=== PATIENT | male | born 1970 | race Caucasian/White ===

== ENCOUNTER 2016-10-18 07:35 | Inpatient (IN) | payer OTHER ==
[~2016-10-18] VITALS: Ht 185.4 cm; Wt 109.0 kg
[2016-10-18] VITALS (13 sets, daily range): BP systolic 137–167; BP diastolic 55–89; PULSE 100–113; RESP 18–22; TEMP 98.3–98.4; O2SAT 97–100
[~2016-10-18 07:35] MED LIST: INSU1MIS15; LANCETS1 MI1; LISI10TA3 PO; NOVOLOGMXP SQ; POTA-163 PO
[2016-10-18] MEDS: SODIUM CHLOR 0.9% 1000 ML INJ 1,000 ML IV SCH ×2 (07:49→09:04)
--- NOTE | 2016-10-18 07:53 | PD ---
HPI Chief Complaint: Diabetic Time Seen by Provider: 07:45 Travel History International Travel<30 days: No Contact w/Intl Traveler<30days: No Traveled to known affect area: No History of Present Illness HPI 46-year-old male presents with shortness of breath, vomiting and general ill feeling since yesterday. He states that he last took his insulin yesterday morning because since been throwing up and not feeling good he didn't think he would need more. He states he currently doesn't have a set primary care physician and he is been working on getting medication through an assistance clinic that helps. He denies any pain, fever or other concurrent complaints. He states he feels worse when he moves around. His Accu-Chek with the ambulance team was in the 500s ,his entidal CO2 was 8. Quality is significantly elevated. Duration is one day. He states he had DKA when he was here around April last. PFSH Past Medical History Cancer: No Cardiovascular Problems: Yes High Cholesterol: Yes Diabetes: Yes Diminished Hearing: No Genitourinary: No Hypertension: Yes Musculoskeletal: No Neurologic: No Reproductive: No Respiratory: No Social History Alcohol Use: No Tobacco Use: No Substance Use: No Allergies-Medications (Allergen,Severity, Reaction): Coded Allergies: No Known Allergies (Verified , 04/13/16) Reported Meds & Prescriptions Reported Meds & Active Scripts Active Lancets 1 Mis Mis 1 Ea .ROUTE DIRECTED Insulin Syringe/U-100/31G X 09/29" 1 ml 1 Mis Mis 1 Ea .ROUTE DIRECTED Lisinopril 10 Mg Tab 10 Mg PO DAILY Potassium Chloride ER (Potassium Chloride) 20 Meq Tab 20 Meq PO DAILY Novolog Mix 70-30 Inj (Insulin Aspart Prota 70%/Aspart 30%) 1,000 Unit/10 Ml Vial 25 Units SQ BIDAC Review of Systems Except as stated in HPI: all other systems reviewed are Neg Physical Exam Narrative GENERAL: Well-nourished, well-developed patient. SKIN: Warm and dry. HEAD: Normocephalic and atraumatic. EYES: No injection or drainage. ENT: No nasal drainage noted. NECK: Supple, trachea midline. CARDIOVASCULAR: Tachycardic rate and regular rhythm RESPIRATORY: Breath sounds equal bilaterally. No accessory muscle use. GASTROINTESTINAL: Abdomen soft, non-tender, nondistended. EXTREMITIES: No edema. NEUROLOGICAL: Awake and alert. Motor and sensory grossly within normal limits. Normal speech. Data Data Last Documented VS Vital Signs Date Time Temp Pulse Resp B/P Pulse Ox O2 Delivery O2 Flow Rate FiO2 10/18/16 08:48 104 22 149/89 100 Nasal Cannula 2 10/18/16 07:46 98.4 Orders Electrocardiogram (10/18/16 07:45) ^ Insert Iv (10/18/16 07:45) Diet Npo (10/18/16 Breakfast) Lipase (10/18/16 07:45) Troponin I (10/18/16 07:45) Complete Blood Count With Diff (10/18/16 07:45) Comprehensive Metabolic Panel (10/18/16 07:45) Magnesium (Mg) (10/18/16 07:45) Phosphorus (Po4) (10/18/16 07:45) Beta Hydroxybutyrate (Acetone) (10/18/16 07:45) Sodium Chlor 0.9% 1000 Ml Inj (Ns 1000 M (10/18/16 07:45) Urinalysis - C+S If Indicated (10/18/16 07:45) Chest, Single Ap (10/18/16 ) Arterial Blood Gas (Abg) (10/18/16 ) Creatine Kinase (Cpk) (10/18/16 07:45) Lactic Acid (10/18/16 07:45) Blood Culture (10/18/16 07:45) Blood Glucose (10/18/16 07:47) Blood Glucose (10/18/16 08:47) Ecg Monitoring (10/18/16 07:47) Oximetry (10/18/16 07:47) Sodium Bicarbonate 8.4% Inj (Sodium Bica (10/18/16 08:30) Sodium Chlor 0.9% 1000 Ml Inj (Ns 1000 M (10/18/16 08:45) Vancomycin Inj (Vancomycin Inj) (10/18/16 08:36) Piperacil-Tazo 4.5 Gm Premix (Zosyn 4.5 (10/18/16 08:36) Sodium Chlor 0.9% 1000 Ml Inj (Ns 1000 M (10/18/16 09:13) Dext 5%-Nacl 0.9% 1000 Ml Inj (D5w-Ns 10 (10/18/16 09:13) Insulin Human Regular Inj (Novolin R Inj (10/18/16 09:15) Insulin Regular (Iv Infusion) (Novolin R (10/18/16 09:15) Potassium Chlor 20 Meq Premix (Kcl 20 Me (10/18/16 09:15) Potassium Chlor 20 Meq Premix (Kcl 20 Me (10/18/16 09:15) Potassium Chlor 20 Meq Premix (Kcl 20 Me (10/18/16 09:15) Potassium Chlor 20 Meq Premix (Kcl 20 Me (10/18/16 09:15) Sodium Bicarbonate 8.4% Inj (Sodium Bica (10/18/16 09:15) Sodium Phosphate Inj (Sodium Phosphate I (10/18/16 09:15) Admit Order (Ed Use Only) (10/18/16 09:41) Labs Laboratory Tests Test 10/18/16 10/18/16 07:45 08:11 White Blood Count 17.3 TH/MM3 Red Blood Count 5.32 MIL/MM3 Hemoglobin 17.5 GM/DL Hematocrit 52.4 % Mean Corpuscular Volume 98.6 FL Mean Corpuscular Hemoglobin 32.9 PG Mean Corpuscular Hemoglobin 33.4 % Concent Red Cell Distribution Width 14.0 % Platelet Count 242 TH/MM3 Mean Platelet Volume 10.4 FL Neutrophils (%) (Auto) 79.6 % Lymphocytes (%) (Auto) 9.3 % Monocytes (%) (Auto) 10.7 % Eosinophils (%) (Auto) 0.0 % Basophils (%) (Auto) 0.4 % Neutrophils # (Auto) 13.8 TH/MM3 Lymphocytes # (Auto) 1.6 TH/MM3 Monocytes # (Auto) 1.9 TH/MM3 Eosinophils # (Auto) 0.0 TH/MM3 Basophils # (Auto) 0.1 TH/MM3 CBC Comment AUTO DIFF Differential Total Cells 100 Counted Neutrophils % (Manual) 71 % Band Neutrophils % 8 % Lymphocytes % 7 % Monocytes % 11 % Neutrophils # (Manual) 14.2 TH/MM3 Metamyelocytes 2 % Myelocytes 1 % Differential Comment FINAL DIFF MANUAL Platelet Estimate NORMAL Platelet Morphology Comment ENLARGED Red Cell Morphology Comment Sodium Level 135 MEQ/L Potassium Level 4.7 MEQ/L Chloride Level 100 MEQ/L Carbon Dioxide Level 6.5 MEQ/L Anion Gap 29 MEQ/L Blood Urea Nitrogen 22 MG/DL Creatinine 1.94 MG/DL Estimat Glomerular Filtration 38 ML/MIN Rate Random Glucose 535 MG/DL Lactic Acid Level 3.3 mmol/L Calcium Level 8.7 MG/DL Phosphorus Level 5.3 MG/DL Magnesium Level 2.4 MG/DL Total Bilirubin 0.7 MG/DL Aspartate Amino Transf 10 U/L (AST/SGOT) Alanine Aminotransferase 25 U/L (ALT/SGPT) Alkaline Phosphatase 133 U/L Total Creatine Kinase 42 U/L Troponin I LESS THAN 0.02 NG/ML Total Protein 7.9 GM/DL Albumin 4.0 GM/DL Lipase 738 U/L B-Hydroxybutyrate 13.57 MMOL/L Blood Gas Puncture Site RT RADIAL Blood Gas Patient Temperature 98.6 Blood Gas HCO3 2 mmol/L Blood Gas Base Excess -28.8 mmol/L Blood Gas Oxygen Saturation 95 % Arterial Blood pH 6.93 Arterial Blood Partial 8 mmHg Pressure CO2 Arterial Blood Partial 147 mmHG Pressure O2 Arterial Blood Oxygen Content 21.8 Vol % Arterial Blood 2.0 % Carboxyhemoglobin Arterial Blood Methemoglobin 1.3 % Blood Gas Hemoglobin 16.2 G/DL Oxygen Delivery Device ROOM AIR Blood Gas Inspired Oxygen 21 % MDM Medical Decision Making Medical Screen Exam Complete: Yes Emergency Medical Condition: Yes Medical Record Reviewed: Yes (past history confirmed) Interpretation(s) CBC & BMP Diagram 10/18/16 07:45 Last 24 hours Impressions Chest X-Ray 10/18/16 0000 Signed Impressions: Service Date/Time: Tuesday, October 18, 2016 08:05 - CONCLUSION: No acute cardiopulmonary disease identified. River Maldonado MD Metabolic acidosis with bicarbonate of 2 and PCO2 of 8, pH is 6.9 and PO2 of 147 -given bicarbonate Differential Diagnosis DKA, UTI, pneumonia, URI, cardiac, noncompliance, gastroenteritis Narrative Course Will check blood work, urinalysis, chest x-ray and dose with IV fluid hydration and closely monitor on review of abg, given bicarb, given broad spectrum antibiotics for coverage 481 on recheck after ivf, will start insulin bolus and drip and admit to the icu Critical Care Narrative Aggregate critical care time was 45 minutes. Time to perform other separately billable procedures was not included in the critical care time. My time did not include minutes spent treating any other patients simultaneously or on activities that did not directly contribute to the patient's treatment. The services I provided to this patient were to treat and/or prevent clinically significant deterioration that could result in: electrolyte abnormality, shock.... I provided critical care services requiring my management, as noted below: Chart data review, documentation time, medication orders and management, vital sign assessments/reviewing monitor data, ordering and reviewing lab tests, ordering and interpreting/reviewing x-rays and diagnostic studies, care of the patient and discussion of the patient with the admitting physicians. Sepsis Criteria SIRS Criteria (2 or more): Heart rate over 90, WBC > 16915, < 4000 or > 10% bands Sepsis Criteria (SIRS+source): Infect source susp/known Severe Sepsis (+one): Lactate >2 Criteria Outcome: Meets severe sepsis criteria Physician Communication Physician Communication dr eisenberg agrees to admit, will take over care Diagnosis Primary Impression: DKA (diabetic ketoacidoses) Qualified Code: E10.10 - Diabetic ketoacidosis without coma associated with type 1 diabetes mellitus Additional Impressions: Acidosis Sepsis Qualified Code: A41.9 - Sepsis, due to unspecified organism Vomiting Qualified Code: R11.2 - Non-intractable vomiting with nausea, unspecified vomiting type Admitting Information Admitting Physician Requests: Admit Celi Guzman MD Oct 18, 2016 07:53
[2016-10-18 08:21] LABS: BLOOD GAS BASE EXCESS -28.8 mmol/L (-2-2); BLOOD GAS HCO3 2 mmol/L (22-26); BLOOD GAS METHEMOGLOBIN 1.3 % (0-2); BLOOD GAS O2 HGB SATURATION 95 % (90-100); BLOOD GAS OXYGEN CONTENT 21.8 Vol % (12.0-20.0); BLOOD GAS PCO2 8 mmHg (38-42); BLOOD GAS PO2 147 mmHG (61-120); BLOOD GAS TOTAL HGB 16.2 G/DL (12.0-16.0); CRITICAL VALUE YES; DRAW SITE RT RADIAL; FIO2 21 %; NUMBER OF ARTERIAL PUNCTURES 1; OXYGEN DEVICE ROOM AIR; STAT YES; TEMP CORR TO 98.6
--- NOTE | 2016-10-18 08:21 | RADRPT ---
EXAM DATE/TIME: 10/18/2016 08:05 [facility] COMPARISON: CHEST SINGLE AP, April 13, 2016, 23:13. INDICATIONS : Short of Breath MEDICAL HISTORY : Diabetes mellitus type II. Hypertension SURGICAL HISTORY : None. ENCOUNTER: Initial ACUITY: 1 day PAIN SCORE: 0/10 LOCATION: Bilateral chest FINDINGS: Single AP view of the chest. Respiratory motion on the right. The lungs are clear. Cardiomediastinal silhouette within normal limits. No evidence of pleural effusion or pneumothorax. CONCLUSION: No acute cardiopulmonary disease identified. River Maldonado MD on October 18, 2016 at 8:14 Board Certified Radiologist. This report was verified electronically.
[2016-10-18] MEDS ORDERED: SODIUM BICARBONATE 8.4% SOLN 50 MEQ/50 ML VIAL IV PRN ×4 (08:30→10:00)
[2016-10-18 08:33] LABS: AUTOMATED NEUTROPHIL # 13.8 TH/MM3 (1.8-7.7); BASOPHIL # 0.1 TH/MM3 (0-0.2); BASOPHIL % 0.4 % (0.0-2.0); HEMATOCRIT 52.4 % (39.0-51.0); LYMPH % 9.3 % (9.0-44.0); LYMPHOCYTE # 1.6 TH/MM3 (1.0-4.8); MEAN CELL VOLUME 98.6 FL (80.0-100.0); MEAN CORPUSCULAR HEMOGLOBIN 32.9 PG (27.0-34.0); MEAN CORPUSCULAR HGB CONC 33.4 % (32.0-36.0); MONO % 10.7 % (0.0-8.0); NEUT % 79.6 % (16.0-70.0); PLATELET COUNT 242 TH/MM3 (150-450); RED BLOOD COUNT 5.32 MIL/MM3 (4.50-5.90); WHITE BLOOD COUNT 17.3 TH/MM3 (4.0-11.0)
[2016-10-18 08:34] LABS: HEMO FLAGS AUTO DIFF
[2016-10-18] MEDS ORDERED: VANCOMYCIN INJ 1,000 MG in SODIUM CHLOR 0.9% 250 ML INJ 250 ML IV STA (08:36)
[2016-10-18] MEDS ORDERED: PIPERACIL-TAZO 4.5 GM PREMIX 100 ML IV STA (08:36)
[2016-10-18] MEDS ORDERED: SODIUM CHLOR 0.9% 1000 ML INJ 1,000 ML IV ONE (08:45)
[2016-10-18 08:51] LABS: ANION GAP 29 MEQ/L (5-15)
[2016-10-18 09:07] LABS: BANDS 8 % (0-6); METAMYELOCYTES 2 % (0-1); MYELOCYTES 1 % (0-0); NEUTROPHIL # MANUAL DIFF 14.2 TH/MM3 (1.8-7.7); POLYS (SEG NEUTROPHILS) 71 % (16-70); WBC DIFF SAMPLE 100
[2016-10-18 09:08] LABS: ALKALINE PHOSPHATASE 133 U/L (45-117); ALT (GPT) 25 U/L (12-78); AST (GOT) 10 U/L (15-37); BETA-HYDROXYBUTYRATE 13.57 MMOL/L (0.00-0.39); BICARBONATE 6.5 MEQ/L (21.0-32.0); BLOOD UREA NITROGEN 22 MG/DL (7-18); CHLORIDE 100 MEQ/L (98-107); GLOMERULAR FILTRATION RATE 38 ML/MIN (>89); MAGNESIUM 2.4 MG/DL (1.5-2.5); POTASSIUM 4.7 MEQ/L (3.5-5.1); SODIUM (NA) 135 MEQ/L (136-145); TOTAL BILIRUBIN ADULT 0.7 MG/DL (0.2-1.0)
[2016-10-18 09:09] LABS: CREATINE KINASE 42 U/L (39-308); PLATELET ESTIMATE SMEAR NORMAL (NORMAL)
[2016-10-18 09:10] LABS: PLATELET MORPHOLOGY ENLARGED (NORMAL)
[2016-10-18 09:12] LABS: SCAN/DIFF FINAL DIFF MANUAL
[2016-10-18] MEDS ORDERED: DEXT 5%-NACL 0.9% 1000 ML INJ 1,000 ML IV SCH (09:13)
[2016-10-18] MEDS ORDERED: SODIUM CHLOR 0.9% 1000 ML INJ 1,000 ML IV SCH ×2 (09:13→11:00)
[2016-10-18] MEDS ORDERED: INSULIN HUMAN REGULAR 1,000 UNITS/10 ML VIAL IV PUSH ONE (09:15)
[2016-10-18] MEDS ORDERED: POTASSIUM CHLOR 20 MEQ PREMIX 100 ML IV PRN ×9 (09:15→10:00)
[2016-10-18] MEDS ORDERED: SODIUM PHOSPHATE INJ 15 MMOL in SODIUM CHLORIDE 0.9% INJ 100 ML IV PRN (09:15)
[2016-10-18] MEDS: INSULIN REGULAR (IV INFUSION) 100 UNITS in SODIUM CHLORIDE 0.9% INJ 99 ML IV SCH ×3 (09:34→22:06)
[2016-10-18] MEDS ORDERED: CHLORHEXIDINE GLUCONATE 2 % 1 PACK (2 CLOTHS) TOP PRN (10:00)
[2016-10-18] MEDS ORDERED: POTASSIUM CHLOR 40 MEQ PREMIX 100 ML IV PRN ×2 (10:00)
[2016-10-18] MEDS ORDERED: MISCELLANEOUS NURSING INFORMATION XX SCH (10:00)
[2016-10-18] MEDS ORDERED: ONDANSETRON HCL 4 MG/2 ML VIAL IV PUSH PRN (10:15)
[2016-10-18 10:16] LABS: BLOOD, URINE SMALL (NEG); GLUCOSE,URINE 1000 mg/dL (NEG); KETONE, URINE 150 mg/dL (NEG); NITRITE,URINE NEG (NEG); PH, URINE 5.5 (5.0-8.5); URINE COLOR LIGHT-YELLOW (YELLW/STRAW)
[2016-10-18 10:31] LABS: RBC, URINE 0-3 /hpf (0-3); WBC, URINE 0-2 /hpf (0-5)
[2016-10-18 10:32] LABS: COMMENT (UR) CULT NOT INDICATED; COMMENT2 (UR) CULT NOT INDICATED; CULTURE IF INDICATED CULT NOT INDICATED; HYALINE CAST, URINE 0-2 /lpf (RARE); SQUAMOUS EPITHELIAL CELL URINE 0-5 /hpf (0-5)
[2016-10-18] MEDS: DEXT 5%-NACL 0.9% 1000 ML INJ 1,000 ML IV SCH ×3 (11:00→20:05)
--- NOTE | 2016-10-18 13:09 | HHI.HP ---
HPI Service Critical Care Medicine Primary Care Physician No Primary Care Physician Admission Diagnosis dka Diagnosis: Chief Complaint: Nausea, vomiting, shortness of breath Travel History International Travel<30 Days: No Contact w/Intl Traveler <30 Da: No Traveled to Known Affected Are: No Sepsis Criteria SIRS Criteria (2 or more): Heart rate over 90, RR > 20 or PaCO2 < 32 Criteria Outcome: Meets SIRS criteria History of Present Illness HPI 46-year-old male who was brought to the ER by EMS with a history of nausea vomiting and worsening shortness of breath since yesterday morning. He had his insulin since he was not able to keep anything down since yesterday. He denied any chest pain, fevers or chills no dysuria. Denied any hematemesis or melena. His Accu-Chek with EMS was 500s and tidal CO2 was 8. He has previously been admitted for DKA in April 2016 at [place]. Patient was evaluated in the ER and was diagnosed to have diabetic ketoacidosis with a bicarbonate of 8. He was initiated on insulin drip and has been accepted for admission by critical care medicine. I evaluated the patient in the ER after being notified of the admission. At the time of evaluation was laying in the ER stretcher drowsy but easily arousable following commands in minimal respiratory distress with tachypnea. History PFSH Past Medical History Cancer: No Cardiovascular Problems: Yes High Cholesterol: Yes Diabetes: Yes Diminished Hearing: No Genitourinary: No Hypertension: Yes Musculoskeletal: No Neurologic: No Reproductive: No Respiratory: No Social History Alcohol Use: No Tobacco Use: No Substance Use: No Allergies-Medications Allergies-Medications (Allergen,Severity, Reaction): Coded Allergies: No Known Allergies (Verified , 04/13/16) Reported Meds & Prescriptions Reported Meds & Active Scripts Active Lancets 1 Mis Mis 1 Ea .ROUTE DIRECTED Insulin Syringe/U-100/31G X 09/29" 1 ml 1 Mis Mis 1 Ea .ROUTE DIRECTED Lisinopril 10 Mg Tab 10 Mg PO DAILY Potassium Chloride ER (Potassium Chloride) 20 Meq Tab 20 Meq PO DAILY Novolog Mix 70-30 Inj (Insulin Aspart Prota 70%/Aspart 30%) 1,000 Unit/10 Ml Vial 25 Units SQ BIDAC ROS Review of Systems Except as stated in HPI: all other systems reviewed are Neg Physical Exam Vital Signs Vital Signs Date Time Temp Pulse Resp B/P Pulse Ox O2 Delivery O2 Flow Rate FiO2 10/18/16 12:06 113 20 159/69 99 Nasal Cannula 10/18/16 11:13 112 20 153/55 100 Nasal Cannula 2 10/18/16 10:35 110 20 167/80 97 Nasal Cannula 2 10/18/16 09:52 108 20 150/88 100 Nasal Cannula 2 10/18/16 08:48 104 22 149/89 100 Nasal Cannula 2 10/18/16 08:12 108 20 165/84 100 Nasal Cannula 2 10/18/16 07:56 119 18 97 Nasal Cannula 2 10/18/16 07:54 100 Nasal Cannula 2 10/18/16 07:46 98.4 108 18 137/79 Physical Exam Narrative GENERAL: Well-nourished, well-developed patient. SKIN: Warm and dry. HEAD: Normocephalic and atraumatic. EYES: No injection or drainage. ENT: No nasal drainage noted. Tongue dry NECK: Supple, trachea midline. CARDIOVASCULAR: Tachycardic rate and regular rhythm RESPIRATORY: Breath sounds equal bilaterally. No accessory muscle use. He is tachypneic GASTROINTESTINAL: Abdomen soft, non-tender, nondistended. EXTREMITIES: No edema. NEUROLOGICAL: Awake and alert. Motor and sensory grossly within normal limits. Normal speech. Laboratory Laboratory Tests Test 10/18/16 10/18/16 10/18/16 07:45 08:11 09:54 White Blood Count 17.3 Red Blood Count 5.32 Hemoglobin 17.5 Hematocrit 52.4 Mean Corpuscular Volume 98.6 Mean Corpuscular Hemoglobin 32.9 Mean Corpuscular Hemoglobin 33.4 Concent Red Cell Distribution Width 14.0 Platelet Count 242 Mean Platelet Volume 10.4 Neutrophils (%) (Auto) 79.6 Lymphocytes (%) (Auto) 9.3 Monocytes (%) (Auto) 10.7 Eosinophils (%) (Auto) 0.0 Basophils (%) (Auto) 0.4 Neutrophils # (Auto) 13.8 Lymphocytes # (Auto) 1.6 Monocytes # (Auto) 1.9 Eosinophils # (Auto) 0.0 Basophils # (Auto) 0.1 CBC Comment AUTO DIFF Differential Total Cells 100 Counted Neutrophils % (Manual) 71 Band Neutrophils % 8 Lymphocytes % 7 Monocytes % 11 Neutrophils # (Manual) 14.2 Metamyelocytes 2 Myelocytes 1 Differential Comment FINAL DIFF MANUAL Platelet Estimate NORMAL Platelet Morphology Comment ENLARGED Red Cell Morphology Comment Sodium Level 135 Potassium Level 4.7 Chloride Level 100 Carbon Dioxide Level 6.5 Anion Gap 29 Blood Urea Nitrogen 22 Creatinine 1.94 Estimat Glomerular Filtration 38 Rate Random Glucose 535 Lactic Acid Level 3.3 Calcium Level 8.7 Phosphorus Level 5.3 Magnesium Level 2.4 Total Bilirubin 0.7 Aspartate Amino Transf 10 (AST/SGOT) Alanine Aminotransferase 25 (ALT/SGPT) Alkaline Phosphatase 133 Total Creatine Kinase 42 Troponin I LESS THAN 0.02 Total Protein 7.9 Albumin 4.0 Lipase 738 B-Hydroxybutyrate 13.57 Blood Gas Puncture Site RT RADIAL Blood Gas Patient Temperature 98.6 Blood Gas HCO3 2 Blood Gas Base Excess -28.8 Blood Gas Oxygen Saturation 95 Arterial Blood pH 6.93 Arterial Blood Partial 8 Pressure CO2 Arterial Blood Partial 147 Pressure O2 Arterial Blood Oxygen Content 21.8 Arterial Blood 2.0 Carboxyhemoglobin Arterial Blood Methemoglobin 1.3 Blood Gas Hemoglobin 16.2 Oxygen Delivery Device ROOM AIR Blood Gas Inspired Oxygen 21 Urine Color LIGHT-YELLOW Urine Turbidity CLEAR Urine pH 5.5 Urine Specific Warren 1.020 Urine Protein 30 Urine Glucose (UA) 1000 Urine Ketones 150 Urine Occult Blood SMALL Urine Nitrite NEG Urine Bilirubin NEG Urine Urobilinogen LESS THAN 2.0 Urine Leukocyte Esterase NEG Urine RBC 0-3 Urine WBC 0-2 Urine Squamous Epithelial 0-5 Cells Urine Hyaline Casts 0-2 Urine Granular Casts 3-5 Microscopic Urinalysis Comment CULT NOT INDICATED Date/Time Procedure Status Source Growth 10/18/16 07:45 Aerobic Blood Culture Received Blood Peripheral Pending 10/18/16 07:45 Anaerobic Blood Culture Received Blood Peripheral Pending Result Diagram: 10/18/16 0745 10/18/16 0745 Imaging Last Impressions Chest X-Ray 10/18/16 0000 Signed Impressions: Service Date/Time: Tuesday, October 18, 2016 08:05 - CONCLUSION: No acute cardiopulmonary disease identified. River Maldonado MD Assessment and Plan Assessment and Plan Diabetic ketoacidosis Uncontrolled diabetes mellitus Nausea vomiting SIRS versus sepsis Leukocytosis with bandemia Plan: Neuro: Follow neuro status. Cardiovascular: Aggressive fluid resuscitation. Watch for hypotension. Pulmonary: Supplemental O2 as needed. Bronchodilators when necessary. GI/liver: Nothing by mouth for now. Doubt pancreatitis as patient does not have any abdominal pain. Protonix 40 mg IV twice a day Renal/: Aggressive fluid resuscitation, strict intake output, monitor and replete elect lites, follow BUN/creatinine. ID: Received vancomycin and Zosyn IV in the ER. Will continue empiric Zosyn. Follow blood cultures. Endocrine: Insulin drip per DKA protocol. Heme: Follow CBC Prophylaxis: Lovenox for DVT prophylaxis, Protonix Condition critical Time spent on critical care excluding procedures 40 minutes Sumanth Keller MD Oct 18, 2016 13:09
[2016-10-18] MEDS: PANTOPRAZOLE SODIUM 40 MG VIAL IV PUSH SCH (13:58)
--- NOTE | 2016-10-18 14:46 | EKG ---
Date Performed: 10/18/2016 Time Performed: 07:54:51 PTAGE: 46 years EKG: Sinus tachycardia Otherwise within normal limits Since PREVIOUS TRACING 04/14/2016, heart rate faster, othewise no significant chage. PREVIOUS TRACIN04/14/2016 01.26 DOCTOR: Bob Valdez Interpretating Date/Time 10/18/2016 14:44:37
[2016-10-18] MEDS: NORMOSOL R INJ 1,000 ML IV SCH ×2 (15:44→19:06)
[2016-10-18] MEDS: PIPERACIL-TAZO 3.375 GM PREMIX 50 ML IV SCH ×2 (15:44→22:06)
[2016-10-18] MEDS ORDERED: MISCELLANEOUS NURSING INFORMATION ONE (17:15)
[2016-10-18 18:39] LABS: BICARBONATE 12.4 MEQ/L (21.0-32.0); MAGNESIUM 2.1 MG/DL (1.5-2.5); POTASSIUM 3.7 MEQ/L (3.5-5.1)
[2016-10-18] MEDS: POTASSIUM CHLOR 20 MEQ PREMIX 100 ML IV PRN ×2 (19:04→21:09)
[2016-10-18] MEDS: SODIUM PHOSPHATE INJ 15 MMOL in SODIUM CHLORIDE 0.9% INJ 100 ML IV PRN (20:06)
[2016-10-19] VITALS (13 sets, daily range): BP systolic 101–118; BP diastolic 53–72; PULSE 78–97; RESP 14–27; TEMP 97.6–98.7; O2SAT 97–100
[2016-10-19] MEDS: NORMOSOL R INJ 1,000 ML IV SCH ×4 (00:08→16:16)
[2016-10-19 00:27] LABS: POTASSIUM 3.3 MEQ/L (3.5-5.1)
[2016-10-19] MEDS: POTASSIUM CHLOR 20 MEQ PREMIX 100 ML IV PRN ×3 (00:35→05:14)
[2016-10-19] MEDS: DEXT 5%-NACL 0.9% 1000 ML INJ 1,000 ML IV SCH (00:36)
[2016-10-19] MEDS: PIPERACIL-TAZO 3.375 GM PREMIX 50 ML IV SCH ×4 (03:02→21:53)
[2016-10-19] MEDS: PANTOPRAZOLE SODIUM 40 MG VIAL IV PUSH SCH ×2 (03:02→15:06)
[2016-10-19] MEDS: SODIUM PHOSPHATE INJ 15 MMOL in SODIUM CHLORIDE 0.9% INJ 100 ML IV PRN (03:33)
[2016-10-19] MEDS ORDERED: CHLORHEXIDINE GLUCONATE 2 % 1 PACK (2 CLOTHS) TOP SCH (04:00)
[2016-10-19] MEDS ORDERED: DC Insulin drip 2 hrs post basal insulin dose ONE (04:15)
[2016-10-19] MEDS ORDERED: DEXTROSE 50% IN WATER 50 ML VIAL(D50) IV PRN (04:15)
[2016-10-19] MEDS ORDERED: GLUCAGON 1 MG/ML VIAL OTHER PRN ×2 (04:15)
[2016-10-19] MEDS ORDERED: DC previous DKA orders (HMC 1917) ONE (04:15)
[2016-10-19] MEDS ORDERED: INSULIN REGULAR (IV INFUSION) 100 UNITS in SODIUM CHLORIDE 0.9% INJ 99 ML IV SCH (04:30)
--- NOTE | 2016-10-19 04:33 | RADRPT ---
EXAM DATE/TIME: 10/19/2016 03:21 [facility] COMPARISON: CHEST SINGLE AP, October 18, 2016, 8:05. INDICATIONS : Shortness of breath, possible pulmonary disease. MEDICAL HISTORY : Diabetes mellitus type II. Hypertension SURGICAL HISTORY : None. ENCOUNTER: Subsequent ACUITY: 2 days PAIN SCORE: 0/10 LOCATION: Bilateral chest FINDINGS: A single view of the chest demonstrates the lungs to be symmetrically aerated without evidence of mas s, infiltrate or effusion. The cardiomediastinal contours are unremarkable. Osseous structures are intact. CONCLUSION: Normal examination. Dane Cardona MD on October 19, 2016 at 4:31 Board Certified Radiologist. This report was verified electronically.
[2016-10-19] MEDS: INSULIN ASPART SUPPLEMENTAL SCALE SQ SCH ×4 (06:18→21:53)
--- NOTE | 2016-10-19 08:18 | HHI.CCPN ---
Subjective Remarks/Hospital Course 10/18: 46-year-old male who was brought to the ER by EMS with a history of nausea vomiting and worsening shortness of breath since yesterday morning. He had his insulin since he was not able to keep anything down since yesterday. He denied any chest pain, fevers or chills no dysuria. Denied any hematemesis or melena. His Accu-Chek with EMS was 500s and tidal CO2 was 8. He has previously been admitted for DKA in April 2016 at [place]. Patient was evaluated in the ER and was diagnosed to have diabetic ketoacidosis with a bicarbonate of 8. He was initiated on insulin drip and has been accepted for admission by critical care medicine. I evaluated the patient in the ER after being notified of the admission. At the time of evaluation was laying in the ER stretcher drowsy but easily arousable following commands in minimal respiratory distress with tachypnea. 6: Resting comfortably in bed. Breathing is much better. Anion gap corrected. Insulin drip being transitioned to sliding scale insulin this morning. On room air. Objective Vital Signs Date Time Temp Pulse Resp B/P Pulse Ox O2 Delivery O2 Flow Rate FiO2 10/19/16 06:00 89 10/19/16 04:00 98.1 16 110/60 100 10/18/16 21:04 21 10/18/16 12:06 Nasal Cannula 10/18/16 11:13 2 Intake and Output 10/18/16 10/18/16 10/19/16 08:00 16:00 00:00 Intake Total 3157 ml Output Total 1000 ml 1350 ml Balance -1000 ml 1807 ml Result Diagram: 10/18/16 0745 10/18/16 2336 Imaging Last Impressions Chest X-Ray 10/18/16 0000 Signed Impressions: Service Date/Time: Tuesday, October 18, 2016 08:05 - CONCLUSION: No acute cardiopulmonary disease identified. River Maldonado MD Objective Remarks Narrative GENERAL: Well-nourished, well-developed patient. SKIN: Warm and dry. HEAD: Normocephalic and atraumatic. EYES: No injection or drainage. ENT: No nasal drainage noted. Tongue dry NECK: Supple, trachea midline. CARDIOVASCULAR: Tachycardic rate and regular rhythm RESPIRATORY: Breath sounds equal bilaterally. No accessory muscle use. GASTROINTESTINAL: Abdomen soft, non-tender, nondistended. EXTREMITIES: No edema. NEUROLOGICAL: Awake and alert. Motor and sensory grossly within normal limits. Normal speech. A/P Assessment and Plan Diabetic ketoacidosis Uncontrolled diabetes mellitus Nausea vomiting SIRS versus sepsis Leukocytosis with bandemia Plan: Neuro: Follow neuro status. Cardiovascular: Status post Aggressive fluid resuscitation. Watch for hypotension. Pulmonary: Supplemental O2 as needed. Bronchodilators when necessary. GI/liver: Doubt pancreatitis as patient does not have any abdominal pain. Protonix 40 mg IV twice a day. Advance by mouth diet to 1800 ADA as tolerated Renal/: Status post Aggressive fluid resuscitation, strict intake output, monitor and replete elect lites, follow BUN/creatinine. ID: Received vancomycin and Zosyn IV in the ER. Will continue empiric Zosyn. Follow blood cultures. Endocrine: Insulin drip per DKA protocol being transitioned to sliding scale insulin and Levemir this morning as anion gap is corrected. Diabetic education.. Heme: Follow CBC Prophylaxis: Lovenox for DVT prophylaxis, Protonix Patient will be transferred to hospitalist service for further medical management. Critical care will be signing off. Transfer out of ICU later today. Sumanth Keller MD Oct 19, 2016 08:18
[2016-10-19] MEDS: INSULIN DETEMIR 100 UNITS/ML VIAL SQ SCH (09:00)
[2016-10-19 10:34] LABS: BICARBONATE 14.2 MEQ/L (21.0-32.0); MAGNESIUM 2.1 MG/DL (1.5-2.5); POTASSIUM 3.3 MEQ/L (3.5-5.1)
[2016-10-19] MEDS: POTASSIUM PHOSPHATE MONOBASIC 500 MG TAB PO SCH ×2 (10:57→18:00)
[2016-10-19] MEDS ORDERED: ACETAMINOPHEN/HYDROcodone 325 MG/5 MG TAB PO PRN (11:00)
[2016-10-19] MEDS ORDERED: ACETAMINOPHEN 325 MG TAB PO PRN (11:00)
[2016-10-19 20:34] LABS: BICARBONATE 18.9 MEQ/L (21.0-32.0); POTASSIUM 3.3 MEQ/L (3.5-5.1)
[2016-10-20] VITALS (7 sets, daily range): BP systolic 108–152; BP diastolic 59–88; PULSE 69–85; RESP 16–18; TEMP 97.3–98.4; O2SAT 97–100
[2016-10-20] MEDS: PIPERACIL-TAZO 3.375 GM PREMIX 50 ML IV SCH ×3 (02:48→14:59)
[2016-10-20] MEDS: PANTOPRAZOLE SODIUM 40 MG VIAL IV PUSH SCH ×2 (02:48→14:14)
[2016-10-20] MEDS: NORMOSOL R INJ 1,000 ML IV SCH ×4 (04:12→23:01)
[2016-10-20] MEDS: INSULIN ASPART SUPPLEMENTAL SCALE SQ SCH ×4 (06:34→20:59)
[2016-10-20] MEDS: INSULIN DETEMIR 100 UNITS/ML VIAL SQ SCH ×2 (08:17→21:00)
[2016-10-20 09:52] LABS: AUTOMATED NEUTROPHIL # 2.2 TH/MM3 (1.8-7.7); BASOPHIL % 0.5 % (0.0-2.0); EOSINOPHIL # 0.1 TH/MM3 (0-0.4); EOSINOPHIL % 1.6 % (0.0-4.0); HEMATOCRIT 35.9 % (39.0-51.0); LYMPH % 29.4 % (9.0-44.0); LYMPHOCYTE # 1.1 TH/MM3 (1.0-4.8); MEAN CELL VOLUME 91.4 FL (80.0-100.0); MEAN CORPUSCULAR HEMOGLOBIN 32.4 PG (27.0-34.0); MEAN CORPUSCULAR HGB CONC 35.4 % (32.0-36.0); MONO % 9.3 % (0.0-8.0); NEUT % 59.2 % (16.0-70.0); RED BLOOD COUNT 3.93 MIL/MM3 (4.50-5.90); RED CELL DISTRIBUTION WIDTH 13.6 % (11.6-17.2); WHITE BLOOD COUNT 3.8 TH/MM3 (4.0-11.0)
[2016-10-20 09:57] LABS: HEMO FLAGS AUTO DIFF; PLATELET COUNT 81 TH/MM3 (150-450)
[2016-10-20 10:14] LABS: ALT (GPT) 15 U/L (12-78); ANION GAP 13 MEQ/L (5-15); AST (GOT) 7 U/L (15-37); BICARBONATE 21.2 MEQ/L (21.0-32.0); CHLORIDE 108 MEQ/L (98-107); GLOMERULAR FILTRATION RATE 113 ML/MIN (>89); MAGNESIUM 2.2 MG/DL (1.5-2.5); SODIUM (NA) 142 MEQ/L (136-145)
[2016-10-20 10:15] LABS: ALKALINE PHOSPHATASE 65 U/L (45-117); BLOOD UREA NITROGEN 7 MG/DL (7-18); TOTAL BILIRUBIN ADULT 0.8 MG/DL (0.2-1.0)
[2016-10-20 10:41] LABS: SCAN/DIFF AUTO DIFF CONFIRMED
--- NOTE | 2016-10-20 16:30 | HHI.PR ---
Subjective Remarks No new complaints. Objective Vitals Vital Signs Date Time Temp Pulse Resp B/P Pulse Ox O2 Delivery O2 Flow Rate FiO2 10/20/16 12:00 97.5 73 18 135/74 100 10/20/16 09:02 Room Air 10/20/16 08:00 97.5 85 18 128/79 100 10/20/16 04:00 97.3 77 16 118/71 99 10/20/16 00:00 97.8 75 16 108/59 97 10/19/16 20:41 78 10/19/16 20:00 98.7 84 14 118/64 100 10/19/16 10/19/16 10/20/16 15:00 23:00 07:00 Intake Total 960 ml 682 ml 1145 ml Output Total 700 ml 650 ml Balance 260 ml 32 ml 1145 ml Intake Oral 960 ml IV Total 682 ml 1145 ml Output Urine Total 700 ml 650 ml # Bowel Movements 0 Result Diagram: 10/20/16 0910/20/16 0906 Imaging Last Impressions Chest X-Ray 10/19/16 0600 Signed Impressions: Service Date/Time: Wednesday, October 19, 2016 03:21 - CONCLUSION: Normal examination. Dane Cardona MD Objective Remarks GENERAL: This is a well-nourished, well-developed patient, in no apparent distress. CARDIOVASCULAR: Regular rate and rhythm without murmurs, gallops, or rubs. RESPIRATORY: Clear to auscultation. Breath sounds equal bilaterally. No wheezes , rales, or rhonchi. GASTROINTESTINAL: Abdomen soft, non-tender, nondistended. Normal active bowel sounds MUSCULOSKELETAL: Extremities without clubbing, cyanosis, or edema. NEURO: Alert & Oriented x4 to person, place, time, situation. Moves all ext x4 A/P Problem List: (1) Diabetes 1.5, managed as type 1 Status: Acute Plan: - Pt new to [facility], so NO outpt records are available to me - obtain HgA1C and C-peptide to verify Type I DM diagnosis - per pt he was managing his DM on his own without medical oversight since he had NO insurance until recently - per pt he was taking levemir 10units BID which he had "leftover" - start levemir 20 units BID - continue SSI - anticipate d/c to home in next 1-2 days. (2) DKA (diabetic ketoacidoses) Status: Acute Plan: - resolved - see above (3) HTN (hypertension) Status: Chronic Plan: - most readings stable for last 48 hours without scheduled BP meds - follow BP reading - prn vasotec/catapress Problem Qualifiers (1) DKA (diabetic ketoacidoses): Qualified Code: E10.10 - Diabetic ketoacidosis without coma associated with type 1 diabetes mellitus (2) HTN (hypertension): Qualified Code: I10 - Essential hypertension Braulio Stanford DO Oct 20, 2016 16:30
[2016-10-20] MEDS ORDERED: ENALAPRILAT 1.25 MG/ML VIAL IV PRN (17:00)
[2016-10-20] MEDS ORDERED: cloNIDine HCL 0.2 MG TAB PO PRN (17:00)
[2016-10-20] MEDS: POTASSIUM CHLORIDE 20 MEQ CONTROLLED RELEASE TAB PO SCH ×2 (17:17→20:55)
[2016-10-21] VITALS: BP 120/67; PULSE 71; RESP 18; TEMP 98.4; O2SAT 96
[2016-10-21] MEDS: PANTOPRAZOLE SODIUM 40 MG VIAL IV PUSH SCH ×2 (02:25→13:04)
[2016-10-21 04:00] VITALS: BP 110/60; PULSE 69; RESP 18; TEMP 98.2; O2SAT 98
[2016-10-21] MEDS: INSULIN ASPART SUPPLEMENTAL SCALE SQ SCH ×2 (06:27→12:39)
[2016-10-21 07:31] LABS: AUTOMATED NEUTROPHIL # 1.5 TH/MM3 (1.8-7.7); BASOPHIL % 0.5 % (0.0-2.0); EOSINOPHIL # 0.1 TH/MM3 (0-0.4); EOSINOPHIL % 1.7 % (0.0-4.0); HEMATOCRIT 34.7 % (39.0-51.0); LYMPH % 37.5 % (9.0-44.0); LYMPHOCYTE # 1.1 TH/MM3 (1.0-4.8); MEAN CELL VOLUME 91.1 FL (80.0-100.0); MEAN CORPUSCULAR HGB CONC 35.1 % (32.0-36.0); MONO % 9.3 % (0.0-8.0); PLATELET COUNT 80 TH/MM3 (150-450); RED BLOOD COUNT 3.81 MIL/MM3 (4.50-5.90); RED CELL DISTRIBUTION WIDTH 13.5 % (11.6-17.2)
[2016-10-21 07:35] LABS: HEMO FLAGS AUTO DIFF
[2016-10-21 07:54] LABS: ANION GAP 9 MEQ/L (5-15); BICARBONATE 26.1 MEQ/L (21.0-32.0); BLOOD UREA NITROGEN 8 MG/DL (7-18); CHLORIDE 109 MEQ/L (98-107); GLOMERULAR FILTRATION RATE 138 ML/MIN (>89); MAGNESIUM 2.2 MG/DL (1.5-2.5); SODIUM (NA) 144 MEQ/L (136-145)
[2016-10-21 07:57] LABS: HDL CHOLESTEROL 28.7 MG/DL (40.0-60.0); LDL CHOLESTEROL 60 MG/DL (0-99)
[2016-10-21 08:00] VITALS: BP 118/77; PULSE 73; RESP 18; TEMP 98.1; O2SAT 97
[2016-10-21 08:17] LABS: BANDS 7 % (0-6); EOSINOPHILS 2 % (0-4); METAMYELOCYTES 1 % (0-1); MYELOCYTES 1 % (0-0); NEUTROPHIL # MANUAL DIFF 1.8 TH/MM3 (1.8-7.7); PLATELET ESTIMATE SMEAR LOW (NORMAL); PLATELET MORPHOLOGY NORMAL (NORMAL); POLYS (SEG NEUTROPHILS) 50 % (16-70); SCAN/DIFF FINAL DIFF MANUAL; WBC DIFF SAMPLE 100
[2016-10-21] MEDS: NORMOSOL R INJ 1,000 ML IV SCH (09:06)
[2016-10-21] MEDS: INSULIN DETEMIR 100 UNITS/ML VIAL SQ SCH (09:09)
[2016-10-21] MEDS: POTASSIUM CHLORIDE 20 MEQ CONTROLLED RELEASE TAB PO SCH ×2 (11:49→14:37)
[2016-10-21] MEDS ORDERED: POTA-163 PO (11:51)
[2016-10-21] MEDS ORDERED: LEVEMIR SQ (11:51)
--- NOTE | 2016-10-21 11:53 | HHI.DCPOC ---
Discharge Care Plan Diagnosis: (1) DKA (diabetic ketoacidoses) (2) Diabetes 1.5, managed as type 1 (3) HTN (hypertension) (4) Vomiting Goals to Promote Your Health * To prevent worsening of your condition and complications * To maintain your health at the optimal level Directions to Meet Your Goals Take your medications as prescribed Follow your dietary instruction Follow activity as directed Keep your appointments as scheduled Take your immunizations and boosters as scheduled If your symptoms worsen call your PCP, if no PCP go to Urgent Care Center or Emergency Room Smoking is Dangerous to Your Health. Avoid second hand smoke Call the 24-hour hour crisis hotline for domestic abuse at Braulio Stanford DO Oct 21, 2016 11:53
--- NOTE | 2016-10-21 11:55 | HHI.DS ---
Discharge Summary Admission Date Oct 18, 2016 at 09:44 Discharge Date: Oct 21, 2016 Admitting Diagnosis dka (1) Diabetes 1.5, managed as type 1 Diagnosis: Principal (2) DKA (diabetic ketoacidoses) Diagnosis: Principal (3) Vomiting Diagnosis: Principal (4) Acidosis Diagnosis: Principal (5) Hypokalemia Diagnosis: Principal Brief History 46-year-old male who was brought to the ER by EMS with a history of nausea vomiting and worsening shortness of breath since yesterday morning. He had his insulin since he was not able to keep anything down since yesterday. He denied any chest pain, fevers or chills no dysuria. Denied any hematemesis or melena. His Accu-Chek with EMS was 500s and tidal CO2 was 8. He has previously been admitted for DKA in April 2016 at [place]. Patient was evaluated in the ER and was diagnosed to have diabetic ketoacidosis with a bicarbonate of 8. He was initiated on insulin drip and has been accepted for admission by critical care medicine. I evaluated the patient in the ER after being notified of the admission. At the time of evaluation was laying in the ER stretcher drowsy but easily arousable following commands in minimal respiratory distress with tachypnea. CBC/BMP: 10/21/16 0640 10/21/16 0640 Significant Findings Laboratory Tests Test 10/18/16 10/18/16 10/19/16 10/19/16 17:35 23:36 09:21 19:50 Chloride Level 113 MEQ/L 118 MEQ/L 114 MEQ/L 108 MEQ/L (98-107) (98-107) (98-107) (98-107) Carbon Dioxide Level 12.4 MEQ/L 18.0 MEQ/L 14.2 MEQ/L 18.9 MEQ/L (21.0-32.0) (21.0-32.0) (21.0-32.0) (21.0-32.0) Anion Gap 17 MEQ/L (5-15) 16 MEQ/L (5-15) Blood Urea Nitrogen 19 MG/DL (7-18) Creatinine 1.39 MG/DL (0.60-1.30) Estimat Glomerular Filtration 56 ML/MIN (>89) 69 ML/MIN (>89) 86 ML/MIN (>89) 80 ML/MIN (>89) Rate Random Glucose 237 MG/DL 166 MG/DL 271 MG/DL 330 MG/DL (74-106) (74-106) (74-106) (74-106) Calcium Level 8.3 MG/DL 7.9 MG/DL 7.6 MG/DL 8.2 MG/DL (8.5-10.1) (8.5-10.1) (8.5-10.1) (8.5-10.1) Phosphorus Level 1.0 MG/DL 0.5 MG/DL 1.6 MG/DL 1.5 MG/DL (2.5-4.9) (2.5-4.9) (2.5-4.9) (2.5-4.9) Sodium Level 146 MEQ/L (136-145) Potassium Level 3.3 MEQ/L 3.3 MEQ/L 3.3 MEQ/L (3.5-5.1) (3.5-5.1) (3.5-5.1) Test 10/20/16 10/21/16 09:06 06:40 White Blood Count 3.8 TH/MM3 3.0 TH/MM3 (4.0-11.0) (4.0-11.0) Red Blood Count 3.93 MIL/MM3 3.81 MIL/MM3 (4.50-5.90) (4.50-5.90) Hemoglobin 12.7 GM/DL 12.2 GM/DL (13.0-17.0) (13.0-17.0) Hematocrit 35.9 % 34.7 % (39.0-51.0) (39.0-51.0) Platelet Count 81 TH/MM3 80 TH/MM3 (150-450) (150-450) Monocytes (%) (Auto) 9.3 % (0.0-8.0) 9.3 % (0.0-8.0) Potassium Level 3.0 MEQ/L 3.0 MEQ/L (3.5-5.1) (3.5-5.1) Chloride Level 108 MEQ/L 109 MEQ/L (98-107) (98-107) Random Glucose 233 MG/DL 206 MG/DL (74-106) (74-106) Calcium Level 8.1 MG/DL 8.3 MG/DL (8.5-10.1) (8.5-10.1) Aspartate Amino Transf 7 U/L (15-37) (AST/SGOT) Total Protein 5.1 GM/DL (6.4-8.2) Albumin 2.5 GM/DL (3.4-5.0) Neutrophils # (Auto) 1.5 TH/MM3 (1.8-7.7) Band Neutrophils % 7 % (0-6) Myelocytes 1 % (0-0) Platelet Estimate LOW (NORMAL) Triglycerides Level 228 MG/DL (42-150) HDL Cholesterol 28.7 MG/DL (40.0-60.0) PE at Discharge GENERAL: This is a well-nourished, well-developed patient, in no apparent distress. CARDIOVASCULAR: Regular rate and rhythm without murmurs, gallops, or rubs. RESPIRATORY: Clear to auscultation. Breath sounds equal bilaterally. No wheezes , rales, or rhonchi. GASTROINTESTINAL: Abdomen soft, non-tender, nondistended. Normal active bowel sounds MUSCULOSKELETAL: Extremities without clubbing, cyanosis, or edema. NEURO: Alert & Oriented x4 to person, place, time, situation. Moves all ext x4 Hospital Course (1) Diabetes 1.5, managed as type 1 Status: Acute Plan: - Pt new to [facility], so NO outpt records are available to me - obtain HgA1C and C-peptide to verify Type I DM diagnosis, still pending on the day of discharge - per pt he was managing his DM on his own without medical oversight since he had NO insurance until recently - per pt he was taking levemir 10units BID which he had "leftover" - discharge on levemir 20 units BID - Pt received diabetic teaching during this hospitalization - Pt instructed to adhere to diabetic diet - pt needs to f/u with assigned [facility] PCP, Dr. Stark, in 1 wee. - Pt would benefit from seeing an Medical Assistant Instructor, outpt. f/u with [facility] Endocrinology, Dr. Breaux, in 2 weeks. - Per pt this is his second admission for DKA within the last year - I have discussed my concerns with pt. Without proper medical oversight, pt is at high risk for complications or DM, repeat DKA, repeat hospitalizations, and . - Case d/w [facility] Case Mgmt. Pt will be offered free enrollment in [facility] Complex Case Mgmt program for assistance with his DM1 mgmt. - see discharge orders - repeat BMP, Mag, random urine microalbumin at [facility] lab next wednesday. (2) DKA (diabetic ketoacidoses) Status: Acute Plan: - resolved - see above (3) HTN (hypertension) Status: Chronic Plan: - most readings stable for last 48 hours without scheduled BP meds - Pt currently receiving NO antihypertensive medications - I will NOT restart his lisinopril upon discharge, but pt should monitor his BP readings at home He may need to resume lisinopril if BP readings rise after discharge. Pt Condition on Discharge: Stable Discharge Disposition: Discharge Home Discharge Instructions DIET: Follow Instructions for: Diabetic Diet Activities you can perform: Regular-No Restrictions Follow up Referrals: Endocrinology - [address] Breaux PCP Follow-up - [address] Alex Stark New Medications: Insulin Detemir Inj (Levemir Inj) 1,000 unit/ 10 ML Vial 20 UNITS SQ BID DM Days 30 Ref 0 INJECTION Continued Medications: Potassium Chloride ER (Potassium Chloride ER) 20 Meq Tab 20 MEQ PO DAILY Electrolyte Replacement #30 Ref 0 TAB (This prescription has been renewed) Discontinued Medications: Insulin Aspart Protam-Asp 70-30 Inj (Novolog Mix 70-30 Inj) 1,000 Unit/10 Ml Vial 25 UNITS SQ BIDAC Blood Sugar Management #10 Ref 0 ML Lisinopril (Lisinopril) 10 Mg Tab 10 MG PO DAILY #30 Ref 0 TAB Braulio Stanford DO Oct 21, 2016 11:55
[2016-10-21 12:00] VITALS: BP 140/73; PULSE 86; RESP 18; TEMP 98.6; O2SAT 98
[2016-10-21 17:41] LABS: HEMOGLOBIN A1a 1.2 %; HEMOGLOBIN Ao 77.8 %; HEMOGLOBIN F 2.2 %; HEMOGLOBIN LA1C 2.5 %; HEMOGLOBIN P3 4.1 %
== END 2016-10-21 15:34 | disposition home or self-care (01) | DRG 638 ==
LOC: NEPE 07:35 → NEDA 09:44 → HIME 12:20 → N04B 10-19 12:07
PROVIDERS: ADMIT Hospitalist; ATTEND Hospitalist
DX: E10.10 Type 1 diabetes mellitus with ketoacidosis without coma (principal); R65.10 Systemic inflammatory response syndrome (SIRS) of non-infectious origin without acute organ dysfunction; I10 Essential (primary) hypertension; E87.6 Hypokalemia; Z79.4 Long term (current) use of insulin
CPT/HCPCS: 36600; 71010; 76937; 80048; 80053; 80061; 81001; 82010; 82550; 82805; 82948; 83036; 83605; 83690; 83735; 84100; 84484; 84681; 85007; 85025; 85027; 87040; 87641; 93005; 96361; 96365; 96374; 96375; C9113; J1815; J1817; J2543; J3370; J3480; J7030; J7042; J7050

== ENCOUNTER 2018-01-18 16:01 | Inpatient (IN) ==
[2018-01-18] MEDS ORDERED: Sod Chloride 0.9% Inj 1,000 ML IV.SIG SCH ×2 (16:30→18:00)
--- NOTE | 2018-01-18 16:40 | ED ---
HPI General Chief complaint: Chest Pain Stated complaint: Diabetic Complaint Time Seen by Provider: 01/18/18 16:22 History of Present Illness HPI narrative: This is a 47-year-old male with history of diabetes, hypertension presents for evaluation of chest pain and dry mouth. Symptoms started 4 days ago. 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 He describes it as a substernal chest pressure which is worse with exertion. He reports some associated nausea and dry mouth currently asymptomatic he was having symptoms earlier today. Symptoms are moderate, aggravated by exertion, alleviated with rest. Denies vomiting, abdominal pain, shortness of breath, cough or congestion, recent illness. His blood sugars noted to be over 400. He reports that he has not been checking his blood sugar recently. He has no other complaints at this time. Related Data Home Medications Medication Instructions Recorded Confirmed aspirin [Aspir-81] 81 mg PO DAILY 01/18/18 01/18/18 empagliflozin [Jardiance] 25 mg BID 01/18/18 01/18/18 gabapentin 300 mg PO TID 01/18/18 01/18/18 lisinopril 10 mg PO TID 01/18/18 01/18/18 metformin 500 mg PO BID 01/18/18 01/18/18 Allergies Allergy/AdvReac Type Severity Reaction Status Date / Time No Known Allergies Allergy Verified 01/18/18 16:23 Review of Systems ROS: all other systems reviewed are negative PMFSH Medical History Medical History Diabetes (Acute) Hypertension (Acute) Pain (Acute) Social History Social History Substance History: No History of Abuse Smoking Status: Never smoker How Often Do You Have a Drink Containing Alcohol: Never Recent Out of Country Travel within the Last 8 Weeks: No Immunization History Tetanus Immunization: <5 Years Exam Narrative Exam Narrative: GENERAL: Well-developed well-nourished male in no acute distress SKIN: Warm and dry. HEAD: Atraumatic. Normocephalic. EYES: Pupils equal and round. No scleral icterus. No injection or drainage. ENT: No nasal bleeding or discharge. Mucous membranes pink and moist. NECK: Trachea midline. No JVD. CARDIOVASCULAR: Regular rate and rhythm. No murmur appreciated. RESPIRATORY: No accessory muscle use. Clear to auscultation. Breath sounds equal bilaterally. GASTROINTESTINAL: Abdomen soft, non-tender, nondistended. Hepatic and splenic margins not palpable. MUSCULOSKELETAL: No obvious deformities. No clubbing. No cyanosis. No edema. NEUROLOGICAL: Awake and alert. No obvious cranial nerve deficits. Motor grossly within normal limits. Normal speech. PSYCHIATRIC: Appropriate mood and affect; insight and judgment normal. Course Initial Documented Vital Signs Temperature 98.4 F 01/18/18 16:06 Pulse Rate 110 H 01/18/18 16:06 Respiratory Rate 20 01/18/18 16:06 Blood Pressure 149/85 H 01/18/18 16:06 Pulse Oximetry 97 01/18/18 16:06 Last Documented Vital Signs Temperature 98.4 F 01/18/18 16:06 Pulse Rate 110 H 01/18/18 16:06 Respiratory Rate 20 01/18/18 16:06 Blood Pressure 149/85 H 01/18/18 16:06 Pulse Oximetry 97 01/18/18 16:06 Medical Decision Making CAITLIN Attestation CAITLIN supervised visit: Yes Attestation: The history, exam, and medical decision-making in the associated mid-level provider note were completed with my assistance. I reviewed and agree with the findings presented. I attest that I had a [id number] encounter with the patient on the same day, and personally performed and documented my assessment and findings in the medical record. *My assessment and Findings: 47-year-old man, here with hyperglycemia, chest pain, found to have DKA. History of the same. On multiple medications. He is type II but is been in DKA before. It looks overall fairly well. Given IV fluids, start insulin. Plan admission. [facility] Narrative Medical decision making narrative: Patient was placed on ECG monitoring pulse oximetry. A 12 EKG was obtained revealing sinus tachycardia with a rate of 103 , left axis deviation, lab work, chest x-ray been ordered. The patient took a baby aspirin this morning, additional 243 mg of aspirin have been ordered. he was given 1 L normal saline bolus. Lab work reviewed. Cardiac enzymes negative. Anion gap 17, carbon dioxide 16.3 , glucose 4 3, beta hydroxyurea 5.59 consistent with DKA. DKA protocol ordered. 11 unit insulin bolus administered. The patient will be admitted to [place] healthcare team. Medical Screen Exam Complete: Yes Emergency Medical Condition: Yes Differential Diagnosis Differential Diagnosis: Angina, acute coronary syndrome, pericarditis, myocarditis, pneumothorax, pulmonary embolism, hyperglycemia, dehydration Lab Data Result diagrams: 01/18/18 16:54 01/18/18 16:54 Lab Results 01/18/18 01/18/18 01/18/18 Range/Units 16:22 16:54 16:54 WBC 8.3 (4.0-11.0) th/mm3 RBC 5.28 (4.50-5.90) mil/mm3 Hgb 16.6 (13.0-17.0) gm/dL Hct 47.2 (39.0-51.0) % MCV 89.4 (80.0-100.0) fL MCH 31.5 (27.0-34.0) pg MCHC 35.2 (32.0-36.0) % RDW 13.0 (11.6-17.2) % Plt Count 153 (150-450) th/mm3 MPV 10.1 (7.0-11.0) fL Neut % (Auto) 71.2 H (16.0-70.0) % Lymph % (Auto) 19.7 (9.0-44.0) % [place] % (Auto) 7.5 (0.0-8.0) % Eos % (Auto) 0.8 (0.0-4.0) % Baso % (Auto) 0.8 (0.0-2.0) % Neut # (Auto) 5.9 (1.8-7.7) th/mm3 Lymph # (Auto) 1.6 (1.0-4.8) th/mm3 [place]er # (Auto) 0.6 (0.0-0.9) th/mm3 Eos # (Auto) 0.1 (0.0-0.4) th/mm3 Baso # (Auto) 0.1 (0.0-0.2) th/mm3 WBC Differential . Differential Comment Auto diff final Sodium 131 L (136-145) meq/L Potassium 3.7 (3.5-5.1) meq/L Chloride 97 L (98-107) meq/L Carbon Dioxide 16.7 L (21.0-32.0) meq/L Anion Gap 17 H (5-15) meq/L BUN 16 (7-18) mg/dL Creatinine 1.09 (0.60-1.30) mg/dL Estimated GFR 73 L (>89) mL/min POC Glucose 420 H (68-110) mg/dl Random Glucose 403 H (74-106) mg/dL Calcium 8.8 (8.5-10.1) mg/dL Magnesium 1.8 (1.5-2.5) mg/dL Total Bilirubin 0.7 (0.2-1.0) mg/dL AST 24 (15-37) U/L ALT 34 (12-78) U/L Alkaline Phosphatase 107 (45-117) U/L Total Creatine Kinase 71 (39-308) U/L Troponin I Less than 0.02 L (0.02-0.05) ng/mL Total Protein 7.3 (6.4-8.2) g/dL Albumin 4.1 (3.4-5.0) g/dL Lipase 107 (73-393) U/L Beta-Hydroxybutyric Acd 5.59 H (0.00-0.39) mmol/L Imaging Data Radiologist's impression: Chest X-Ray 01/18/18 16:30 CONCLUSION: No acute intrathoracic disease. Stable exam Discharge Plan Discharge Disposition Patient Disposition: 30 Still Patient Discharge Condition Condition: Stable Discharge Details Diagnosis: Chest pain, DKA (diabetic ketoacidoses) Physicians Team ED Provider: Dane Steen ED Midlevel Provider: Elver Haney Primary Care Provider: Alex Stark Attending Provider: Bob Multani Status ED Status: Admitted Patient
--- NOTE | 2018-01-18 16:48 | XR ---
EXAM DATE: 01/18/2018 4:46 PM EDT AGE/SEX: 47 years / Male INDICATIONS: Chest pain CLINICAL DATA: This is the patient's initial encounter. Patient reports that signs and symptoms have been present for 1 day and indicates a pain score of 0/10. MEDICAL/SURGICAL HISTORY: Diabetes mellitus type II. None. COMPARISON: [facility] [place], CHEST SINGLE AP, 10/19/2016. . FINDINGS: A single AP view of the chest demonstrates the lungs to be symmetrically aerated without evidence of mass, infiltrate or effusion. The cardiomediastinal contours are unremarkable. Osseous structures a re intact. CONCLUSION: No acute intrathoracic disease. Stable exam Electronically signed by: Mainor Bansal MD 01/18/2018 4:47 PM EDT
[2018-01-18 17:05] LABS: Baso # (Auto) 0.1 th/mm3 (0.0-0.2); Baso % (Auto) 0.8 % (0.0-2.0); Eos # (Auto) 0.1 th/mm3 (0.0-0.4); Eos % (Auto) 0.8 % (0.0-4.0); Hematocrit 47.2 % (39.0-51.0); Hemoglobin 16.6 gm/dL (13.0-17.0); Lymph # (Auto) 1.6 th/mm3 (1.0-4.8); Lymph % (Auto) 19.7 % (9.0-44.0); Mean Corpuscular HGB Conc 35.2 % (32.0-36.0); Mean Corpuscular Hemoglobin 31.5 pg (27.0-34.0); Mean Corpuscular Volume 89.4 fL (80.0-100.0); Mean Platelet Volume 10.1 fL (7.0-11.0); Mono # (Auto) 0.6 th/mm3 (0.0-0.9); Mono % (Auto) 7.5 % (0.0-8.0); Neut # (Auto) 5.9 th/mm3 (1.8-7.7); Neut % (Auto) 71.2 % (16.0-70.0); Platelet Count 153 th/mm3 (150-450); Red Blood Count 5.28 mil/mm3 (4.50-5.90); White Blood Count 8.3 th/mm3 (4.0-11.0)
[2018-01-18 17:37] LABS: Alanine Aminotransferase 34 U/L (12-78); Albumin 4.1 g/dL (3.4-5.0); Anion Gap 17 meq/L (5-15); Aspartate Aminotransferase 24 U/L (15-37); Blood Urea Nitrogen 16 mg/dL (7-18); Calcium 8.8 mg/dL (8.5-10.1); Carbon Dioxide 16.7 meq/L (21.0-32.0); Chloride 97 meq/L (98-107); Glomerular Filtration Rate 73 mL/min (>89); Glucose,Random 403 mg/dL (74-106); Lipase 107 U/L (73-393); Magnesium 1.8 mg/dL (1.5-2.5); Sodium 131 meq/L (136-145)
[2018-01-18 17:38] LABS: Potassium 3.7 meq/L (3.5-5.1)
[2018-01-18 17:56] LABS: Alkaline Phosphatase 107 U/L (45-117); Beta Hydroxybutyric Acid 5.59 mmol/L (0.00-0.39); Total Protein 7.3 g/dL (6.4-8.2)
[2018-01-18 17:57] LABS: Creatine Kinase 71 U/L (39-308)
[2018-01-18] MEDS ORDERED: Insulin Regular (For Infusion) 100 UNIT in Sodium Chlor 0.9% Inj 99 ML IV.CONT PRN (18:08)
[2018-01-18] MEDS ORDERED: Potassium Chlor 20 mEq Premix 20 MEQ/100 ML PIGGYBACK IV.SIG PRN ×7 (18:08→20:13)
[2018-01-18] MEDS ORDERED: Sodium Phosphate Inj 15 MMOL in Sodium Chlor 0.9% Inj 100 ML IV.SIG PRN (18:08)
[2018-01-18] MEDS ORDERED: Potassium Chlor 40 mEq Premix 40 MEQ/100 ML PIGGYBACK IV.SIG PRN ×2 (18:08)
[2018-01-18] MEDS: Sod Chloride 0.9% Inj 1,000 ML IV.CONT SCH ×2 (19:47→21:00)
[2018-01-18] MEDS ORDERED: Dextrose 5%/NaCl 0.9% Inj 1,000 ML IV.CONT SCH (20:15)
[2018-01-18] MEDS ORDERED: Sod Chloride 0.9% Inj 1,000 ML IV.CONT SCH (20:15)
--- NOTE | 2018-01-18 20:48 | P.HP ---
History of Present Illness Service: [facility] Adult med Primary Care Physician: Alex Stark DO Chief Complaint: chest pain, nausea History of Present Illness: This is a 47-year-old male with history of diabetes with prior admission for DKA , hypertension presents for evaluation of chest pain and dry mouth. Symptoms started 4 days ago. 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 He describes it as a substernal chest pressure which is worse with exertion. He reports some associated nausea and dry mouth currently asymptomatic he was having symptoms earlier today. Symptoms were moderate, aggravated by exertion, alleviated with rest. He has not had any chest pain since resting. Denies vomiting, abdominal pain, shortness of breath, cough or congestion, recent illness. His blood sugars noted to be over 400. He reports that he has not been checking his blood sugar recently as he was awaiting a new glucometer. His only other complaint to me is that he is hungry. It is noted that he was admitted just over a year ago with DKA as well. He reports that he has been trying to drink enough fluid in the heat but had been feeling somewhat nauseated so may not have drank as much as he should. His mother also tells me that he was at a seafood boil yesterday and ate a lot of extra food. Evaluation in the ER revealed blood sugars over 400 with bicarbonate of 17 and anion gap around 17 as well and a beta hydroxybutyrate above 5. His initial cardiac enzymes are negative and no obvious acute injury on EKG. Chest x-ray is negative. Patient denies any fever or chills. He has been given insulin bolus and IV fluids. DKA protocol has been initiated although it appears he may turn around relatively quickly from the DKA perspective. SH has 5 y.o. son in [place] Never a smoker. Prior occasional EtOH, but none of late. 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 This includes certification that hospital inpatient services are reasonable and necessary and in the case of services not specified as inpatient-only under 42 CFR 419.22(n), that they are appropriately provided as inpatient services in accordance to with the 2-midnight benchmark under 43 CFR 412.3(e) Estimated Total Length of Stay (Days): 2 Plans for Post Hospital Care: Home Review of Systems Constitutional: Reports excessive sweating, Reports fatigue, Reports lack of energy, Reports weight gain Eyes: Denies blind spots, Denies blurry vision, Denies bulging eyes, Denies change in vision, Denies double vision, Denies discharge, Denies dry eyes, Denies floaters, Denies irritation, Denies itchy eyes, Denies loss of vision, Denies pain, Denies requires corrective lenses, Denies sensitivity to light, Denies other Ears, Nose, Mouth, and Throat: Denies abnormal hearing, Denies bleeding gums, Denies bad breath, Denies change in voice, Denies dental pain, Denies difficulty swallowing, Denies dizziness, Denies dry mouth, Denies ear discharge , Denies ear pain, Denies facial pain, Denies headache(s), Denies hearing loss, Denies hoarseness, Denies lip swelling, Denies nosebleed, Denies mouth lesions, Denies mouth pain, Denies nasal congestion, Denies nasal discharge, Denies nasal obstruction, Denies nasal trauma, Denies neck lump, Denies neck pain, Denies nose pain, Denies pain with swallowing, Denies poor balance, Denies post nasal drip, Denies ringing in the ears, Denies sinus pain, Denies sinus pressure , Denies sore throat, Denies throat swelling, Denies tongue swelling, Denies other Cardiovascular: Reports chest pain, Reports chest pain with activity, Reports excessive sweating, Reports lightheadedness, Denies chest pain at rest, Denies fainting, Denies fast heart rate, Denies foot swelling, Denies generalized swelling, Denies irregular heart rhythm, Denies leg pain with activity, Denies leg sores, Denies leg swelling, Denies radiating jaw, neck or arm pain, Denies rapid, pounding, or irregular heartbeat, Denies shortness of breath, Denies shortness of breath with activity, Denies shortness of breath when lying down, Denies shortness of breath causing sudden awakening, Denies slow heart rate, Denies other Respiratory: Denies change in phlegm color, Denies chest congestion, Denies cough, Denies coughing up blood, Denies excessive phlegm production, Denies pain on inspiration, Denies pain with cough, Denies shortness of breath, Denies shortness of breath with activity, Denies snoring, Denies stridor, Denies wheezing, Denies other Gastrointestinal: Reports heartburn, Reports nausea Musculoskeletal: Denies abnormal walking, Denies back pain, Denies body aches, Denies decreased muscle mass, Denies deformity, Denies joint pain, Denies joint swelling, Denies limited joint movement, Denies loss of height, Denies muscle cramps, Denies muscle weakness, Denies neck pain, Denies numbness, Denies radiating pain into limb, Denies stiffness, Denies tingling, Denies other Neurologic: Denies abnormal hearing, Denies abnormal movements, Denies abnormal speech, Denies abnormal walking, Denies behavioral changes, Denies burning sensations, Denies confusion, Denies dizziness, Denies fainting, Denies frequent falls, Denies headache(s), Denies lack of coordination, Denies localized weakness, Denies loss of vision, Denies memory loss, Denies numbness, Denies other visual disturbances, Denies radiating pain, Denies restless legs, Denies convulsions, Denies seizure-like activity, Denies sensory deficit, Denies tingling, Denies tingling/numbness/burning sensations, Denies tremor(s), Denies unsteadiness, Denies weakness, Denies other Psychiatric: Reports anxiety, Denies abnormal sleep pattern, Denies behavioral changes, Denies change in appetite, Denies change in sex drive, Denies confusion , Denies depression, Denies difficulty concentrating, Denies hearing things others do not hear, Denies hopelessness, Denies irritability, Denies lack of enjoyment, Denies memory loss, Denies mood swings, Denies panic attacks, Denies paranoia, Denies seeing things others do not see, Denies sensing things others do not sense, Denies tactile hallucinations, Denies thoughts of hurting/killing others, Denies thoughts of hurting/killing yourself, Denies other PMFSH - History History Provided By: Patient - Medical History Medical History: Medical History (Last Updated 01/18/18 @ 20:39 by Jose Felton MD, PhD) Obesity (BMI 30.0-34.9) (Acute) Hypertension (Acute) Diabetes (Acute) Pain - Surgical History Surgical History: Surgical History (Last Updated 01/18/18 @ 20:39 by Jose Felton MD, PhD) No history of previous surgery - Family History Family History: Family History (Last Updated 01/18/18 @ 20:39 by Jose Felton MD, PhD) Mother Family history of diabetes mellitus - Tobacco History Second Hand Smoke Exposure: No Smoking Status: Never smoker - Alcohol History How Often Do You Have a Drink Containing Alcohol: Never - Substance Use History Substance History: No History of Abuse - Travel History Recent Travel Out of the Country Within the Last 8 Weeks: No - Immunization History Tetanus Immunization: <5 Years Medications and Allergies Active Medications: Active Medications Chlorhexidine Gluconate (Chlorhexidine 2% Cloth) 3 pack TOPICAL DAILY@0400 CAMMIE Stop: 01/24/18 03:59 Chlorhexidine Gluconate (Chlorhexidine 2% Cloth) 3 pack TOPICAL DAILY@0400 PRN PRN Reason: Extra cloth needed Stop: 01/24/18 03:59 Gabapentin (Neurontin) 300 mg PO TID [facility]E Sodium Chloride (Ns Inj) 1,000 mls @ 0 mls/hr IV.SIG BOLUS CAMMIE Sodium Chloride (Ns Inj) 1,000 mls @ 0 mls/hr IV.SIG BOLUS [facility] Dextrose/Sodium Chloride (D5w/Normal Saline Inj) 1,000 mls @ 200 mls/hr IV.CONT .Q5H [facility]E Insulin Human Regular 100 unit (/ Sodium Chloride) 100 mls @ 11 mls/hr IV.CONT TITRATE PRN; Protocol PRN Reason: See protocol Last Admin: 01/18/18 19:48 Dose: 11 units/hr, 11 mls/hr Potassium Chloride (Kcl 20 Meq Premix Inj) 20 meq in 100 mls @ 100 mls/hr IV.SIG Q1H PRN PRN Reason: for K+ 4.5 to 5 Potassium Chloride (Kcl 20 Meq Premix Inj) 20 meq in 100 mls @ 50 mls/hr IV.SIG Q2H PRN PRN Reason: for K+ 4.5 to 5 Potassium Chloride (Kcl 20 Meq Premix Inj) 20 meq in 100 mls @ 100 mls/hr IV.SIG Q1H PRN PRN Reason: for K+ 3.5 to 4.4 Last Admin: 01/18/18 19:47 Dose: 100 mls/hr Potassium Chloride (Kcl 20 Meq Premix Inj) 20 meq in 100 mls @ 50 mls/hr IV.SIG Q2H PRN PRN Reason: for K+ 3.5 to 4.4 Potassium Chloride (Kcl 20 Meq Premix Inj) 20 meq in 100 mls @ 50 mls/hr IV.SIG Q2H PRN PRN Reason: for Initial K+ ONLY < 3.5 Potassium Chloride (Kcl 40 Meq Premix Inj) 40 meq in 100 mls @ 100 mls/hr IV.SIG Q1H PRN PRN Reason: for Initial K+ ONLY < 3.5 Potassium Chloride (Kcl 20 Meq Premix Inj) 20 meq in 100 mls @ 50 mls/hr IV.SIG Q2H PRN PRN Reason: for Subsequent K+ < 3.5 Potassium Chloride (Kcl 40 Meq Premix Inj) 40 meq in 100 mls @ 50 mls/hr IV.SIG Q2H PRN PRN Reason: for Subsequent K+ < 3.5 Sodium Chloride (Ns Inj) 1,000 mls @ 250 mls/hr IV.CONT .Q4H CAMMIE Last Admin: 01/18/18 19:47 Dose: 250 mls/hr Sodium Phosphate 15 mmol/ (Sodium Chloride) 105 mls @ 25 mls/hr IV.SIG UNSCH PRN PRN Reason: for Phosphate Level < 1.0 Dextrose/Sodium Chloride (D5w/Normal Saline Inj) 1,000 mls @ 200 mls/hr IV.CONT .Q5H [facility]E Sodium Chloride (Ns Inj) 1,000 mls @ 250 mls/hr IV.CONT .Q4H [facility] Potassium Chloride (Kcl 20 Meq Premix Inj) 20 meq in 100 mls @ 50 mls/hr IV.SIG Q2H PRN PRN Reason: for Initial K+ ONLY < 3.5 Sodium Bicarbonate (Sodium Bicarbonate 8.4% Inj) 100 meq IV.PUSH UNSCH PRN PRN Reason: for pH less than 6.9 Sodium Bicarbonate (Sodium Bicarbonate 8.4% Inj) 50 meq IV.PUSH UNSCH PRN PRN Reason: for pH 6.9 to 7.0 Sodium Chloride (Ns Flush) 2 ml IV.FLUSH UNSCH PRN PRN Reason: FLUSH AFTER USING IV ACCESS Allergies Allergy/AdvReac Type Severity Reaction Status Date / Time No Known Allergies Allergy Verified 01/18/18 16:23 Home Medications Medication Instructions Recorded Confirmed Type aspirin [Aspir-81] 81 mg PO DAILY 01/18/18 01/18/18 History empagliflozin [Jardiance] 25 mg BID 01/18/18 01/18/18 History exenatide microspheres [Bydureon] 2 mg SUB-Q Q7D 01/18/18 01/18/18 History gabapentin 300 mg PO TID 01/18/18 01/18/18 History insulin aspart U-100 [Novolog 12 unit SUB-Q TID 01/18/18 01/18/18 History Flexpen U-100 Insulin] lisinopril 10 mg PO TID 01/18/18 01/18/18 History metformin 500 mg PO BID 01/18/18 01/18/18 History Exam Vital signs: Vital Signs 01/18/18 16:06 01/18/18 19:49 Temperature 98.4 F Pulse Rate 110 H 85 Respiratory Rate 20 Blood Pressure 149/85 H Pulse Oximetry 97 98 Intake & Output 01/18/18 01/18/18 01/19/18 06:59 18:59 06:59 Weight 107.501 kg 108 kg Other: Weight On Admission 108 kg Narrative: GENERAL: Obese, no acute distress, alert and oriented. SKIN: Warm and dry. Few circumferential erythematous patches along the chest and abdomen wall likely from local contact mediated dermatitis due to EKG pads HEAD: Atraumatic. Normocephalic. EYES: Pupils equal and round. No scleral icterus. No injection or drainage. ENT: No nasal bleeding or discharge. Mucous membranes pink and moist. NECK: Trachea midline. No JVD. CARDIOVASCULAR: Regular rate and rhythm. RESPIRATORY: No accessory muscle use. Clear to auscultation. Breath sounds equal bilaterally. GASTROINTESTINAL: Abdomen soft, non-tender, nondistended. Hepatic and splenic margins not palpable. MUSCULOSKELETAL: Extremities without clubbing, cyanosis, or edema. No obvious deformities. NEUROLOGICAL: Awake and alert. No obvious cranial nerve deficits. Motor grossly within normal limits. Five out of 5 muscle strength in the arms and legs. Normal speech. PSYCHIATRIC: Appropriate mood and affect; insight and judgment normal. Results - Labs CBC & Chem 7: 01/18/18 16:54 01/18/18 16:54 Labs: Laboratory Results - last 24 hr 01/18/18 01/18/18 01/18/18 16:22 16:54 16:54 WBC 8.3 RBC 5.28 Hgb 16.6 Hct 47.2 MCV 89.4 MCH 31.5 MCHC 35.2 RDW 13.0 Plt Count 153 MPV 10.1 Neut % (Auto) 71.2 H Lymph % (Auto) 19.7 [place] % (Auto) 7.5 Eos % (Auto) 0.8 Baso % (Auto) 0.8 Neut # (Auto) 5.9 Lymph # (Auto) 1.6 [place] # (Auto) 0.6 Eos # (Auto) 0.1 Baso # (Auto) 0.1 WBC Differential . Differential Comment Auto diff final Sodium 131 L Potassium 3.7 Chloride 97 L Carbon Dioxide 16.7 L Anion Gap 17 H BUN 16 Creatinine 1.09 Estimated GFR 73 L POC Glucose 420 H Random Glucose 403 H Calcium 8.8 Magnesium 1.8 Total Bilirubin 0.7 AST 24 ALT 34 Alkaline Phosphatase 107 Total Creatine Kinase 71 Troponin I Less than 0.02 L Total Protein 7.3 Albumin 4.1 Lipase 107 Beta-Hydroxybutyric Acd 5.59 H 01/18/18 20:04 WBC RBC Hgb Hct MCV MCH MCHC RDW Plt Count MPV Neut % (Auto) Lymph % (Auto) [place] % (Auto) Eos % (Auto) Baso % (Auto) Neut # (Auto) Lymph # (Auto) [place] # (Auto) Eos # (Auto) Baso # (Auto) WBC Differential Differential Comment Sodium Potassium Chloride Carbon Dioxide Anion Gap BUN Creatinine Estimated GFR POC Glucose 251 H Random Glucose Calcium Magnesium Total Bilirubin AST ALT Alkaline Phosphatase Total Creatine Kinase Troponin I Total Protein Albumin Lipase Beta-Hydroxybutyric Acd - Imaging Impressions Chest X-Ray 01/18/18 16:30 CONCLUSION: No acute intrathoracic disease. Stable exam Caprini VTE Risk Assessment Caprini VTE Risk Assessment: Moderate/High Risk (score >= 2) Caprini Risk Assessment Model: Point Value = 1 Point Value = 2 Point Value = 3 Point Value = 5 Age 41-60 Minor surgery BMI > 25 kg/m2 Swollen legs Varicose veins or History of unexplained or recurrent spontaneous Oral contraceptives or hormone replacement Sepsis (< 1 month) Serious lung disease, including pneumonia (< 1 month) Abnormal pulmonary function Acute myocardial infarction Congestive heart failure (< 1 month) History of inflammatory bowel disease Medical patient at bed rest Age 61-74 Arthroscopic surgery Major open surgery (> 45 min) Laparoscopic surgery (> 45 min) Malignancy Confined to bed (> 72 hours) Immobilizing plaster cast Central venous access Age >= 75 History of VTE Family history of VTE Factor V Leiden Prothrombin [id number] Lupus anticoagulant Anticardiolipin antibodies Elevated serum homocysteine Heparin-induced thrombocytopenia Other congenital or acquired thrombophilia Stroke (< 1 month) Elective arthroplasty Hip, pelvis, or leg fracture Acute spinal cord injury (< 1 month) Prophylaxis Regimen: Total Risk Factor Score Risk Level Prophylaxis Regimen 0-1 Low Early ambulation 2 Moderate Order ONE of the following: *Sequential Compression Device (SCD) *Heparin 5000 units SQ BID 3-4 Higher Order ONE of the following medications: *Heparin 5000 units SQ TID *Enoxaparin/Lovenox 40 mg SQ daily (WT < 150 kg, CrCl > 30 mL/min) *Enoxaparin/Lovenox 30 mg SQ daily (WT < 150 kg, CrCl > 10-29 mL/min) *Enoxaparin/Lovenox 30 mg SQ BID (WT < 150 kg, CrCl > 30 mL/min) AND/OR *Sequential Compression Device (SCD) 5 or more Highest Order ONE of the following medications: *Heparin 5000 units SQ TID (Preferred with Epidurals) *Enoxaparin/Lovenox 40 mg SQ daily (WT < 150 kg, CrCl > 30 mL/min) *Enoxaparin/Lovenox 30 mg SQ daily (WT < 150 kg, CrCl > 10-29 mL/min) *Enoxaparin/Lovenox 30 mg SQ BID (WT < 150 kg, CrCl > 30 mL/min) AND *Sequential Compression Device (SCD) Assessment and Plan - Assessment (1) Chest pain Code(s): R07.9 - Chest pain, unspecified Status: Acute Plan: Patient has known cardiac risk factors. Reports negative stress test approximately 5 years ago. Chest pain somewhat exertional and suspicious for underlying cardiac ischemic etiology. Will continue rule out protocol. Anticipate stress test likely tomorrow if DKA resolved. Patient is chest pain- free currently. (2) DKA (diabetic ketoacidoses) Code(s): E13.10 - Other specified diabetes mellitus with ketoacidosis without coma Status: Acute Plan: DKA protocol initiated. Likely can close gap and decrease ketoacidosis with the fluid and insulin bolus he has already received. Repeat basic metabolic panel pending. - Plan Code Status: full Discussed Condition With: ER provider, pt, his mother Discharge Planning: hopefully d/c home in 2 days.
[2018-01-18] MEDS: Dextrose 5%/NaCl 0.9% Inj 1,000 ML IV.CONT SCH ×2 (21:00→23:15)
[2018-01-18 21:18] LABS: Anion Gap 18 meq/L (5-15); Blood Urea Nitrogen 14 mg/dL (7-18); Calcium 8.6 mg/dL (8.5-10.1); Carbon Dioxide 17.5 meq/L (21.0-32.0); Chloride 104 meq/L (98-107); Glomerular Filtration Rate 86 mL/min (>89); Glucose,Random 163 mg/dL (74-106); Potassium 3.4 meq/L (3.5-5.1); Sodium 139 meq/L (136-145)
[2018-01-18] MEDS: Gabapentin 300 MG Capsule PO SCH (23:01)
[2018-01-19 01:48] LABS: Anion Gap 12 meq/L (5-15); Blood Urea Nitrogen 12 mg/dL (7-18); Calcium 7.9 mg/dL (8.5-10.1); Carbon Dioxide 22.3 meq/L (21.0-32.0); Chloride 110 meq/L (98-107); Glomerular Filtration Rate Greater Than 89 mL/min (>89); Glucose,Random 117 mg/dL (74-106); Potassium 3.4 meq/L (3.5-5.1); Sodium 144 meq/L (136-145)
[2018-01-19] MEDS: Sod Chloride 0.9% Inj 1,000 ML IV.CONT SCH (02:15)
[2018-01-19] MEDS ORDERED: Insulin Detemir Inj 1,000 UNIT/10 ML Vial SQ SCH ×2 (03:15→10:00)
[2018-01-19] MEDS ORDERED: Dextrose 50% in Water 50 ML Vial IV.PUSH PRN (03:23)
[2018-01-19] MEDS: Chlorhexidine Gluconate 2% 1 Pack (2 Cloths) TOPICAL SCH (03:43)
[2018-01-19] MEDS: Sod Chloride 0.9% Inj 1,000 ML IV.SIG SCH ×3 (03:43→23:17)
[2018-01-19] MEDS ORDERED: Chlorhexidine Gluconate 2% 1 Pack (2 Cloths) TOPICAL SCH (04:00)
[2018-01-19] MEDS ORDERED: Chlorhexidine Gluconate 2% 1 Pack (2 Cloths) TOPICAL PRN ×2 (04:00)
[2018-01-19 04:50] LABS: Anion Gap 14 meq/L (5-15); Blood Urea Nitrogen 11 mg/dL (7-18); Calcium 7.9 mg/dL (8.5-10.1); Carbon Dioxide 20.5 meq/L (21.0-32.0); Chloride 108 meq/L (98-107); Glomerular Filtration Rate Greater Than 89 mL/min (>89); Glucose,Random 135 mg/dL (74-106); Potassium 3.5 meq/L (3.5-5.1); Sodium 142 meq/L (136-145)
[2018-01-19 04:55] LABS: Beta Hydroxybutyric Acid 3.59 mmol/L (0.00-0.39)
[2018-01-19] MEDS: Insulin NovoLOG Aspart Correctional Sugar Inj SQ SCH ×4 (05:58→23:17)
[2018-01-19] MEDS: Gabapentin 300 MG Capsule PO SCH ×3 (08:32→18:39)
--- NOTE | 2018-01-19 09:54 | ECG ---
Date Performed: 01/18/2018 Time Performed: 22:07:37 PTAGE: 47 years EKG: Sinus rhythm NORMAL ECG PREVIOUS TRACING : 01/18/2018 16.26 DOCTOR: Dane Avila Interpretating Date/Time 01/19/2018 09:53:18
--- NOTE | 2018-01-19 10:17 | P.PNIM ---
Subjective Interval history: pt feeling better Physical Exam Vital signs: Vital Signs 01/18/18 16:06 01/18/18 19:49 01/18/18 20:30 Temperature 98.4 F 100.6 F H Pulse Rate 110 H 85 84 Respiratory Rate 20 18 Blood Pressure 149/85 H 126/76 Pulse Oximetry 97 98 97 01/18/18 21:09 01/18/18 23:38 01/19/18 00:00 Temperature 99.2 F Pulse Rate 77 Respiratory Rate 16 Blood Pressure 83/51 L Pulse Oximetry 97 97 95 01/19/18 02:00 01/19/18 03:37 01/19/18 04:00 Temperature 97.9 F Pulse Rate 66 66 Respiratory Rate 14 Blood Pressure 102/58 L Pulse Oximetry 95 96 01/19/18 06:00 01/19/18 08:00 Temperature Pulse Rate 71 68 Respiratory Rate Blood Pressure Pulse Oximetry 98 Intake & Output 01/18/18 01/19/18 01/19/18 18:59 06:59 18:59 Intake Total 1465 / 1465 Balance 1465 / 1465 Weight 107.501 kg 110 kg Intake: IV 1405 / 1405 D5W/Normal Saline Inj 1,000 ML 900 / 900 @ 200 mls/hr IV.CONT .Q5H CAM[facility]E Rx#:[id number] NovoLIN R (IV Infusion) 100 55 / 55 UNIT In NS Inj 99 ML @ 11 UNITS /HR 11 mls/hr IV.CONT TITRATE PRN Rx#:[id number] NS Inj 1,000 ML @ 250 mls/hr IV 250 / 250 .CONT .Q4H CAM[facility]E Rx#:[id number] KCl 20 mEq Premix Inj 20 meq In 200 / 200 100 ml @ 50 mls/hr IV.SIG Q2H PRN Rx#:[id number] Oral 60 / 60 Other: Weight On Admission 108 kg heart reg lung cta abd s/nt ext no edema Results - Labs CBC & Chem 7: 01/18/18 16:54 01/19/18 03:30 Laboratory Results - last 24 hr 01/18/18 01/18/18 01/18/18 16:22 16:54 16:54 WBC 8.3 RBC 5.28 Hgb 16.6 Hct 47.2 MCV 89.4 MCH 31.5 MCHC 35.2 RDW 13.0 Plt Count 153 MPV 10.1 Neut % (Auto) 71.2 H Lymph % (Auto) 19.7 [place] % (Auto) 7.5 Eos % (Auto) 0.8 Baso % (Auto) 0.8 Neut # (Auto) 5.9 Lymph # (Auto) 1.6 [place] # (Auto) 0.6 Eos # (Auto) 0.1 Baso # (Auto) 0.1 WBC Differential . Differential Comment Auto diff final Sodium 131 L Potassium 3.7 Chloride 97 L Carbon Dioxide 16.7 L Anion Gap 17 H BUN 16 Creatinine 1.09 Estimated GFR 73 L POC Glucose 420 H Random Glucose 403 H Calcium 8.8 Magnesium 1.8 Total Bilirubin 0.7 AST 24 ALT 34 Alkaline Phosphatase 107 Total Creatine Kinase 71 Troponin I Less than 0.02 L Total Protein 7.3 Albumin 4.1 Lipase 107 Beta-Hydroxybutyric Acd 5.59 H Nasal Screen MRSA (PCR) 01/18/18 01/18/18 01/18/18 20:04 20:20 20:30 WBC RBC Hgb Hct MCV MCH MCHC RDW Plt Count MPV Neut % (Auto) Lymph % (Auto) [place] % (Auto) Eos % (Auto) Baso % (Auto) Neut # (Auto) Lymph # (Auto) [place] # (Auto) Eos # (Auto) Baso # (Auto) WBC Differential Differential Comment Sodium Cancelled Potassium Cancelled Chloride Cancelled Carbon Dioxide Cancelled Anion Gap Cancelled BUN Cancelled Creatinine Cancelled Estimated GFR Cancelled POC Glucose 251 H Random Glucose Cancelled Calcium Cancelled Magnesium Total Bilirubin AST ALT Alkaline Phosphatase Total Creatine Kinase Troponin I Cancelled Total Protein Albumin Lipase Beta-Hydroxybutyric Acd Nasal Screen MRSA (PCR) Not detected 01/18/18 01/18/18 01/18/18 20:30 22:27 23:08 WBC RBC Hgb Hct MCV MCH MCHC RDW Plt Count MPV Neut % (Auto) Lymph % (Auto) [place] % (Auto) Eos % (Auto) Baso % (Auto) Neut # (Auto) Lymph # (Auto) [place] # (Auto) Eos # (Auto) Baso # (Auto) WBC Differential Differential Comment Sodium 139 Potassium 3.4 L Chloride 104 Carbon Dioxide 17.5 L Anion Gap 18 H BUN 14 Creatinine 0.95 Estimated GFR 86 L POC Glucose 193 H 167 H Random Glucose 163 H D Calcium 8.6 Magnesium Total Bilirubin AST ALT Alkaline Phosphatase Total Creatine Kinase Troponin I Less than 0.02 L Total Protein Albumin Lipase Beta-Hydroxybutyric Acd Nasal Screen MRSA (PCR) 01/19/18 01/19/18 01/19/18 00:50 00:53 01:12 WBC RBC Hgb Hct MCV MCH MCHC RDW Plt Count MPV Neut % (Auto) Lymph % (Auto) [place] % (Auto) Eos % (Auto) Baso % (Auto) Neut # (Auto) Lymph # (Auto) [place] # (Auto) Eos # (Auto) Baso # (Auto) WBC Differential Differential Comment Sodium 144 Potassium 3.4 L Chloride 110 H Carbon Dioxide 22.3 Anion Gap 12 BUN 12 Creatinine 0.88 Estimated GFR Greater than 89 POC Glucose 126 H 113 H Random Glucose 117 H Calcium 7.9 L Magnesium Total Bilirubin AST ALT Alkaline Phosphatase Total Creatine Kinase Troponin I Total Protein Albumin Lipase Beta-Hydroxybutyric Acd Nasal Screen MRSA (PCR) 01/19/18 01/19/18 01/19/18 01:35 03:30 05:27 WBC RBC Hgb Hct MCV MCH MCHC RDW Plt Count MPV Neut % (Auto) Lymph % (Auto) [place] % (Auto) Eos % (Auto) Baso % (Auto) Neut # (Auto) Lymph # (Auto) [place] # (Auto) Eos # (Auto) Baso # (Auto) WBC Differential Differential Comment Sodium 142 Potassium 3.5 Chloride 108 H Carbon Dioxide 20.5 L Anion Gap 14 BUN 11 Creatinine 0.83 Estimated GFR Greater than 89 POC Glucose 124 H 167 H Random Glucose 135 H Calcium 7.9 L Magnesium Total Bilirubin AST ALT Alkaline Phosphatase Total Creatine Kinase Troponin I Less than 0.02 L Total Protein Albumin Lipase Beta-Hydroxybutyric Acd 3.59 H D Nasal Screen MRSA (PCR) - Imaging Impressions Chest X-Ray 01/18/18 16:30 CONCLUSION: No acute intrathoracic disease. Stable exam Assessment and Plan - Assessment (1) DKA (diabetic ketoacidoses) Code(s): E13.10 - Other specified diabetes mellitus with ketoacidosis without coma Status: Acute Plan: 1. DKA. Pt says he was working in hot sun and thinks this promoted the DKA episode. Has been admitted to this hospital in past for DKA. last time in 2017. Pt reports that he has been under good control for past year with metformin/ byetta/jardiance. note that jardiance can cause dka also..pt reports taking the drug for a year AG better. off insulin gtt. start basal levemir and novolog as needed today. will review his outpt records regarding diabetic control with his reported medications. transfer out of ICU start diabetic diet. ivf increase activity. his nicolette on hold. (pt denies taking insulin at home now. outpt records says jardiance 25mg daily, byetta 2mg inj weekly, metformin 500mg bid. hga1c 9.3 November 19 which is a trend back upward from 5-6.) 2. neuropathy. cont neurontin (2) Hypertension Code(s): I10 - Essential (primary) hypertension Status: Acute
[2018-01-19 11:13] LABS: Anion Gap 14 meq/L (5-15); Blood Urea Nitrogen 11 mg/dL (7-18); Calcium 8.1 mg/dL (8.5-10.1); Carbon Dioxide 20.2 meq/L (21.0-32.0); Chloride 106 meq/L (98-107); Glomerular Filtration Rate Greater Than 89 mL/min (>89); Glucose,Random 209 mg/dL (74-106); Potassium 3.8 meq/L (3.5-5.1); Sodium 140 meq/L (136-145)
--- NOTE | 2018-01-19 13:17 | ECG ---
Date Performed: 01/18/2018 Time Performed: 16:26:28 PTAGE: 47 years EKG: SINUS TACHYCARDIA MARKED LEFT AXIS DEVIATION POSSIBLE ANTERIOR MYOCARDIAL INFARCTION ABNORM AL ECG PREVIOUS TRACING : 10/18/2016 07.54 DOCTOR: Dane Avila Interpretating Date/Time 01/19/2018 13:12:46
[2018-01-19 16:14] LABS: Hemoglobin A1c 10.9 % (4.3-6.0)
[2018-01-19 16:35] LABS: Anion Gap 9 meq/L (5-15); Blood Urea Nitrogen 11 mg/dL (7-18); Carbon Dioxide 23.6 meq/L (21.0-32.0); Chloride 105 meq/L (98-107); Glomerular Filtration Rate Greater Than 89 mL/min (>89); Glucose,Random 297 mg/dL (74-106); Potassium 3.7 meq/L (3.5-5.1); Sodium 138 meq/L (136-145)
[2018-01-19] MEDS: Insulin Detemir Inj 1,000 UNIT/10 ML Vial SQ SCH (20:31)
[2018-01-19] MEDS: Aspirin 325 MG Tablet PO SCH (20:32)
[2018-01-20] MEDS: Insulin NovoLOG Aspart Correctional Sugar Inj SQ SCH ×5 (06:01→21:50)
[2018-01-20] MEDS: Chlorhexidine Gluconate 2% 1 Pack (2 Cloths) TOPICAL SCH (06:01)
[2018-01-20 08:05] LABS: Anion Gap 10 meq/L (5-15); Blood Urea Nitrogen 8 mg/dL (7-18); Calcium 8.2 mg/dL (8.5-10.1); Carbon Dioxide 22.8 meq/L (21.0-32.0); Chloride 110 meq/L (98-107); Glomerular Filtration Rate Greater Than 89 mL/min (>89); Glucose,Random 176 mg/dL (74-106); Potassium 3.3 meq/L (3.5-5.1); Sodium 143 meq/L (136-145)
--- NOTE | 2018-01-20 09:04 | P.PNIM ---
Subjective Interval history: pt doing better. tolerating food. Physical Exam Vital signs: Vital Signs 01/19/18 10:00 01/19/18 12:00 01/19/18 14:00 Temperature 98.8 F Pulse Rate 87 69 76 Respiratory Rate 18 Blood Pressure 112/63 Pulse Oximetry 98 01/19/18 16:00 01/19/18 17:00 01/19/18 18:00 Temperature 98.7 F Pulse Rate 68 73 80 Respiratory Rate 20 18 21 Blood Pressure 121/79 117/77 119/80 Pulse Oximetry 98 97 98 01/19/18 19:00 01/19/18 20:00 01/19/18 21:00 Temperature 99.3 F Pulse Rate 71 85 71 Respiratory Rate 24 29 H 19 Blood Pressure 124/87 126/68 127/78 Pulse Oximetry 99 97 98 01/19/18 22:00 01/19/18 23:00 01/20/18 00:00 Temperature 99.0 F Pulse Rate 68 66 71 Respiratory Rate 19 12 Blood Pressure 126/76 119/73 Pulse Oximetry 98 97 01/20/18 00:20 01/20/18 00:44 01/20/18 04:00 Temperature 98.9 F 97.3 F L Pulse Rate 94 H 80 68 Respiratory Rate 20 19 Blood Pressure 136/79 110/68 Pulse Oximetry 96 92 L Intake & Output 01/19/18 01/20/18 01/20/18 18:59 06:59 18:59 Intake Total 2400 / 2400 1240 / 1240 Output Total 2875 / 2875 Balance -475 / -475 1240 / 1240 Weight 108 kg Intake: IV 1000 / 1000 1000 / 1000 NS Inj 1,000 ML @ 100 mls/hr IV 1000 / 1000 1000 / 1000 .SIG .Q10H CAMMIE Rx#:[id number] Oral 1400 / 1400 240 / 240 Output: Urine 2875 / 2875 Other: # Voids 1 Date of Last Bowel Movement 01/18/18 # Bowel Movements 0 heart reg lung cta abd s/nt ext no edema Results - Labs CBC & Chem 7: 01/18/18 16:54 01/20/18 06:06 Laboratory Results - last 24 hr 01/19/18 01/19/18 01/19/18 09:50 09:50 12:12 Sodium 140 Potassium 3.8 Chloride 106 Carbon Dioxide 20.2 L Anion Gap 14 BUN 11 Creatinine 0.80 Estimated GFR Greater than 89 POC Glucose 269 H Random Glucose 209 H Hemoglobin A1c 10.9 H Calcium 8.1 L 01/19/18 01/19/18 01/19/18 15:41 18:12 22:56 Sodium 138 Potassium 3.7 Chloride 105 Carbon Dioxide 23.6 Anion Gap 9 BUN 11 Creatinine 0.78 Estimated GFR Greater than 89 POC Glucose 234 H 269 H Random Glucose 297 H Hemoglobin A1c Calcium 8.0 L 01/20/18 06:06 Sodium 143 Potassium 3.3 L Chloride 110 H Carbon Dioxide 22.8 Anion Gap 10 BUN 8 Creatinine 0.59 L Estimated GFR Greater than 89 POC Glucose Random Glucose 176 H D Hemoglobin A1c Calcium 8.2 L Assessment and Plan - Assessment (1) DKA (diabetic ketoacidoses) Code(s): E13.10 - Other specified diabetes mellitus with ketoacidosis without coma Status: Acute Plan: 1. DKA. Pt says he was working in hot sun and thinks this promoted the DKA episode. Has been admitted to this hospital in past for DKA. last time in 2017. Pt reports that he has been under good control for past year with metformin/ byetta/jardiance. note that jardiance can cause dka also..pt reports taking the drug for a year AG better. off insulin gtt. started basal levemir and novolog as needed reviewed his outpt records regarding diabetic control with his reported medications. his nicolette on hold. (pt denies taking insulin at home now. outpt records says jardiance 25mg daily, byetta 2mg inj weekly, metformin 500mg bid. hga1c 9.3 November 19 which is a trend back upward from 5-6.) now hgba1c back up to 10.9. I think pt fails the outpt regimen and needs to go back to basal/bolus insulin. will titrate up levemir and plan for dc home on levemir/novolog. pcp f/u. stop ivf. kcl replacement. 2. neuropathy. cont neurontin (2) Hypertension Code(s): I10 - Essential (primary) hypertension Status: Acute
[2018-01-20] MEDS: Aspirin 325 MG Tablet PO SCH (09:38)
[2018-01-20] MEDS: Insulin Detemir Inj 1,000 UNIT/10 ML Vial SQ SCH (09:39)
[2018-01-20] MEDS: Gabapentin 300 MG Capsule PO SCH ×3 (09:39→17:39)
[2018-01-20] MEDS ORDERED: Dextrose 50% in Water 50 ML Vial IV.PUSH PRN (13:37)
[2018-01-20] MEDS ORDERED: Insulin Detemir Inj 1,000 UNIT/10 ML Vial SQ SCH (21:00)
[2018-01-21] MEDS: Chlorhexidine Gluconate 2% 1 Pack (2 Cloths) TOPICAL SCH (03:04)
[2018-01-21] MEDS ORDERED: Insulin Detemir Inj 1,000 UNIT/10 ML Vial SQ SCH (09:00)
--- NOTE | 2018-01-21 09:24 | P.PNIM ---
Subjective Interval history: wants to go home feels well. Physical Exam Vital signs: Vital Signs 01/20/18 12:00 01/20/18 16:00 01/20/18 20:00 Temperature 98.1 F 98.2 F 97.7 F Pulse Rate 69 73 82 Respiratory Rate 17 17 18 Blood Pressure 121/83 130/77 121/73 Pulse Oximetry 98 98 98 01/21/18 00:00 01/21/18 03:53 01/21/18 03:59 Temperature 97.4 F L Pulse Rate 94 H 57 L Respiratory Rate 18 Blood Pressure 118/69 Pulse Oximetry 98 98 01/21/18 04:00 Temperature 97.4 F L Pulse Rate 60 Respiratory Rate 19 Blood Pressure 103/57 L Pulse Oximetry 96 Intake & Output 01/20/18 01/21/18 01/21/18 18:59 06:59 18:59 Intake Total 920 / 920 682 / 682 Balance 920 / 920 682 / 682 Weight 112 kg Intake: IV 200 / 200 NS Inj 1,000 ML @ 100 mls/hr IV 200 / 200 .SIG .Q10H CAMMIE Rx#:[id number] Oral 720 / 720 682 / 682 Other: # Voids 3 3 Date of Last Bowel Movement 01/20/18 # Bowel Movements 0 4 heart reg lung cta abd s/nt ext no edema Results - Labs CBC & Chem 7: 01/18/18 16:54 01/20/18 06:06 Laboratory Results - last 24 hr 01/20/18 01/20/18 01/20/18 11:30 17:27 20:23 POC Glucose 376 H 210 H 275 H 01/21/18 08:20 POC Glucose 156 H Assessment and Plan - Assessment (1) DKA (diabetic ketoacidoses) Code(s): E13.10 - Other specified diabetes mellitus with ketoacidosis without coma Status: Acute Plan: 1. DKA. Pt says he was working in hot sun and thinks this promoted the DKA episode. Has been admitted to this hospital in past for DKA. last time in 2017. Pt reports that he has been under good control for past year with metformin/ byetta/jardiance. note that jardiance can cause dka also..pt reports taking the drug for a year AG better. off insulin gtt. started basal levemir and novolog as needed reviewed his outpt records regarding diabetic control with his reported medications. his nicolette on hold. (pt denies taking insulin at home now. outpt records says jardiance 25mg daily, byetta 2mg inj weekly, metformin 500mg bid. hga1c 9.3 November 19 which is a trend back upward from 5-6.) now hgba1c back up to 10.9. I think pt fails the outpt regimen and needs to go back to basal/bolus insulin. will titrate up levemir and plan for dc home on levemir/novolog. pcp f/u. stop ivf. kcl replacement. pt agrees to use levemir and novolog . I called pharmacy and wrote for flexpens. Needs to f/u with pcp. 2. neuropathy. cont neurontin (2) Hypertension Code(s): I10 - Essential (primary) hypertension Status: Acute
[2018-01-21] MEDS: Aspirin 325 MG Tablet PO SCH (09:30)
[2018-01-21] MEDS: Gabapentin 300 MG Capsule PO SCH (09:31)
[2018-01-21 10:06] VITALS: BP 122/80; RESP 17; TEMP 97.8; O2SAT 98
[2018-01-21] MEDS: Insulin NovoLOG Aspart Correctional Sugar Inj SQ SCH (10:08)
[2018-01-21 10:46] VITALS: PULSE 57
--- NOTE | 2018-01-30 21:30 | P.DS ---
Date of admission: 01/18/18 18:22 Primary care physician: Alex Stark DO Anticipated date of discharge: 01/21/18 Brief History from admission: This is a 47-year-old male with history of diabetes with prior admission for DKA , hypertension presents for evaluation of chest pain and dry mouth. Symptoms started 4 days ago. 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 He describes it as a substernal chest pressure which is worse with exertion. He reports some associated nausea and dry mouth currently asymptomatic he was having symptoms earlier today. Symptoms were moderate, aggravated by exertion, alleviated with rest. He has not had any chest pain since resting. Denies vomiting, abdominal pain, shortness of breath, cough or congestion, recent illness. His blood sugars noted to be over 400. He reports that he has not been checking his blood sugar recently as he was awaiting a new glucometer. His only other complaint to me is that he is hungry. It is noted that he was admitted just over a year ago with DKA as well. He reports that he has been trying to drink enough fluid in the heat but had been feeling somewhat nauseated so may not have drank as much as he should. His mother also tells me that he was at a seafood boil yesterday and ate a lot of extra food. Evaluation in the ER revealed blood sugars over 400 with bicarbonate of 17 and anion gap around 17 as well and a beta hydroxybutyrate above 5. His initial cardiac enzymes are negative and no obvious acute injury on EKG. Chest x-ray is negative. Patient denies any fever or chills. He has been given insulin bolus and IV fluids. DKA protocol has been initiated although it appears he may turn around relatively quickly from the DKA perspective. SH has 5 y.o. son in [place] Never a smoker. Prior occasional EtOH, but none of late. 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 insulin detemir U-100 [Levemir FlexTouch U-100 Insuln] 30 unit SUB-Q QAM 30 Days #9 ml insulin detemir U-100 [Levemir FlexTouch U-100 Insuln] 25 unit SUB-Q QPM 30 Days #7.5 ml DS: Summary Hospital Course: Assessment and Plan - Assessment (1) DKA (diabetic ketoacidoses) Code(s): E13.10 - Other specified diabetes mellitus with ketoacidosis without coma Status: Acute Plan: 1. DKA. Pt says he was working in hot sun and thinks this promoted the DKA episode. Has been admitted to this hospital in past for DKA. last time in 2017. Pt reports that he has been under good control for past year with metformin/ byetta/jardiance. note that jardiance can cause dka also..pt reports taking the drug for a year AG better. off insulin gtt. started basal levemir and novolog as needed reviewed his outpt records regarding diabetic control with his reported medications. his nicolette on hold. (pt denies taking insulin at home now. outpt records says jardiance 25mg daily, byetta 2mg inj weekly, metformin 500mg bid. hga1c 9.3 November 19 which is a trend back upward from 5-6.) now hgba1c back up to 10.9. I think pt fails the outpt regimen and needs to go back to basal/bolus insulin. will titrate up levemir and plan for dc home on levemir/novolog. pcp f/u. stop ivf. kcl replacement. pt agrees to use levemir and novolog . I called pharmacy and wrote for flexpens. Needs to f/u with pcp. 2. neuropathy. cont neurontin (2) Hypertension Code(s): I10 - Essential (primary) hypertension Status: Acute - Time Spent with Patient Total time spent providing and/or coordinating discharge services: Greater than 30 minutes - Quality: VTE Deep Vein Thrombosis/Pulmonary Embolism Present on Admission: No Exam Vital signs: heart reg lung cta abd s/nt ext no edema Results Procedures completed during hospitalization: none - Impressions ITS Impressions Chest X-Ray 01/18/18 16:30 CONCLUSION: No acute intrathoracic disease. Stable exam Discharge Plan - Discharge Disposition Patient Disposition: Discharge Home - Discharge Condition Condition: Stable - Discharge Order Discharge Orders: Discharge Order (Routine); Ordered 01/21/18 Ordered By: Bob Multani - Discharge Details Anticipated Discharge Date: 01/21/18 Discharge Comment: give patient a copy of our medium dose novolog sliding scale to use at home tidAC. - Physicians Team Primary Care Provider: Alex Stark Attending Provider: Bob Multani
== END 2018-01-21 11:27 | disposition home or self-care (01) ==
LOC: NEPC 16:01 → NEDA 18:22 → HIMC 20:09 → N04 01-20 00:11
PROVIDERS: ADMIT Hospitalist; ATTEND Hospitalist